=== PATIENT | female | born 1955 | race Caucasian/White ===

== ENCOUNTER 2019-09-04 13:12 | Emergency (ER) | payer MEDICARE, OTHER ==
[~2019-09-04] VITALS: Ht 161 cm; Wt 57.9 kg
[2019-09-04] MEDS ORDERED: FAMOTIDINE 20MG/2ML IV (PEPCID) IVP ONE (14:00)
[2019-09-04] MEDS ORDERED: ONDANSETRON 4 MG/2 ML (SDV) Z0FRAN IVP ONE (14:00)
[2019-09-04] MEDS ORDERED: NS IV 1000 ML 1,000 ML IV SCH ×2 (14:00→15:00)
[2019-09-04 14:08] LABS: BASOPHILS % (AUTO) 1 % (0-10); EOSINOPHILS % (AUTO) 1 % (0-10); HEMATOCRIT 38 % (35-52); HEMOGLOBIN 12.3 G/DL (11.5-16.0); LYMPHOCYTES % (AUTO) 24 % (12-44); MEAN CORPUSCULAR HEMOGLOBIN 35 PG (25-34); MEAN CORPUSCULAR HGB CONC 33 G/DL (32-36); MEAN CORPUSCULAR VOLUME 108 FL (80-99); MEAN PLATELET VOLUME 10.2 FL (7.4-10.4); MONOCYTES % (AUTO) 12 % (0-12); NEUTROPHILS # (AUTO) 4.3 X 10^3 (1.8-7.8); NEUTROPHILS % (AUTO) 62 % (42-75); PLATELET COUNT 312 10^3/uL (130-400); RED CELL DISTRIBUTION WIDTH 13.4 % (10.0-14.5)
[2019-09-04 14:09] LABS: EOSINOPHILS # (AUTO) 0.1 10^3/uL (0.0-0.3); LYMPHOCYTES # (AUTO) 1.7 X 10^3 (1.0-4.0); MONOCYTES # (AUTO) 0.8 X 10^3 (0.0-1.0)
[2019-09-04 14:15] VITALS: BP 137/65
[2019-09-04 14:43] LABS: ALANINE AMINOTRANSFERASE 26 U/L (0-55); ALBUMIN 4.7 GM/DL (3.2-4.5); ALKALINE PHOSPHATASE 99 U/L (40-136); BILIRUBIN,TOTAL 0.4 MG/DL (0.1-1.0); BUN/CREATININE RATIO 7; CALCIUM 9.5 MG/DL (8.5-10.1); CARBON DIOXIDE 20 MMOL/L (21-32); CHLORIDE 99 MMOL/L (98-107); CREATININE SERUM 3.56 MG/DL (0.60-1.30); GFR ESTIMATED 13; GLUCOSE 132 MG/DL (70-105); POTASSIUM 3.7 MMOL/L (3.6-5.0); SODIUM 135 MMOL/L (135-145); TOTAL PROTEIN 7.9 GM/DL (6.4-8.2)
[2019-09-04 15:15] VITALS: BP 145/85
--- NOTE | 2019-09-04 15:17 | ED Abdominal Pain ---
General Chief Complaint: Abdominal/GI Problems Stated Complaint: DIARRHEA Nursing Triage Note: Patient reports she has a history of Crohn's disease, has been taking azathioprine and has been well controlled for some time. She states she had to stop taking the azathioprine d/t liver function testing, restarted azathioprine 2 weeks ago and has had uncontrolled diarrhea since. She states she has seen and called her GI specialist at , Dr. Whittaker, multiple times and received a prescription for lomotil and has been taking immodium as well. She reports she is out of the lomotil and the pharmacy will not refill the medication for another two weeks. She reports some nausea/vomiting as well, states she has not eaten since Monday, but has been able to keep fluids down. Sepsis Screen: No Definite Risk History of Present Illness Date Seen by Provider: Sep 04, 2019 Time Seen by Provider: 13:00 Initial Comments Patient is a 64-year-old female with history of Crohn's currently on azathioprine who presents with persistent watery diarrhea after eating for the past 3 weeks. Patient states symptoms coincide with recent change in her Crohn's medications. Patient denies dizziness lightheadedness, chest pain palpitations, fevers, chills, sweats, leg pain and cramping. No abdominal pain or bloody stools. She states that she is being treated with Lomotil by her GI physician but she ran out this morning. She is requesting a refill of her medications. No other acute symptoms or complaints. Timing/Duration: Other Severity/Quality: Moderate Radiation: No Radiation Activities at Onset: None Associated Symptoms: Denies Symptoms Allergies and Home Medications Allergies Coded Allergies: No Known Drug Allergies (Unverified , 09/04/19) Patient Home Medication List Home Medication List Reviewed: Yes Review of Systems Review of Systems Constitutional: see HPI EENTM: See HPI Respiratory: See HPI Cardiovascular: See HPI Gastrointestinal: See HPI Genitourinary: See HPI Musculoskeletal: see HPI Skin: see HPI Psychiatric/Neurological: See HPI Endocrine: See HPI Hematologic/Lymphatic: See HPI Past Tmuddua-Lghkwr-Uqseiz Hx Patient Social History Alcohol Use: Regular Use Number of Drinks Today: 0 Alcohol Beverage of Choice: Beer Recreational Drug Use: No Smoking Status: Never a Smoker 2nd Hand Smoke Exposure: No Recent Foreign Travel: No Contact w/Someone Who Travel: No Recent Infectious Disease Expo: No Recent Hopitalizations: No Physical Abuse: No Sexual Abuse: No Mistreated: No Fear: No Seasonal Allergies Seasonal Allergies: No Past Medical History Surgeries: No Respiratory: No Cardiac: No Neurological: No Genitourinary: No Gastrointestinal: Yes Crohns Disease Musculoskeletal: No Endocrine: No HEENT: No Cancer: No Psychosocial: No Integumentary: No Physical Exam Vital Signs Vital Signs - First Documented 09/04/19 13:15 Temp 36.4 Pulse 56 Resp 18 B/P (MAP) 158/71 (100) Pulse Ox 100 O2 Delivery Room Air Capillary Refill : Less Than 3 Seconds Height/Weight/BMI Height: '" Weight: lbs. oz. kg; 22.00 BMI Method: General Appearance: no apparent distress HEENT: PERRL/EOMI, normal ENT inspection, pharynx normal Neck: non-tender, full range of motion, supple Respiratory: chest non-tender, lungs clear Cardiovascular: normal peripheral pulses, regular rate, rhythm Gastrointestinal: non tender, soft Extremities: normal range of motion, non-tender Back: normal inspection, no CVA tenderness Skin: normal color, warm/dry Focused Exam Sepsis Stage: Ruled Out Progress/Results/Core Measures Results/Orders Lab Results Laboratory Tests Test 09/04/19 13:50 Range/Units White Blood Count 7.0 4.3-11.0 10^3/uL Red Blood Count 3.48 L 4.35-5.85 10^6/uL Hemoglobin 12.3 11.5-16.0 G/DL Hematocrit 38 35-52 % Mean Corpuscular Volume 108 H 80-99 FL Mean Corpuscular Hemoglobin 35 H 25-34 PG Mean Corpuscular Hemoglobin Concent 33 32-36 G/DL Red Cell Distribution Width 13.4 10.0-14.5 % Platelet Count 312 130-400 10^3/uL Mean Platelet Volume 10.2 7.4-10.4 FL Neutrophils (%) (Auto) 62 42-75 % Lymphocytes (%) (Auto) 24 12-44 % Monocytes (%) (Auto) 12 0-12 % Eosinophils (%) (Auto) 1 0-10 % Basophils (%) (Auto) 1 0-10 % Neutrophils # (Auto) 4.3 1.8-7.8 X 10^3 Lymphocytes # (Auto) 1.7 1.0-4.0 X 10^3 Monocytes # (Auto) 0.8 0.0-1.0 X 10^3 Eosinophils # (Auto) 0.1 0.0-0.3 10^3/uL Basophils # (Auto) 0.0 0.0-0.1 10^3/uL Sodium Level 135 135-145 MMOL/L Potassium Level 3.7 3.6-5.0 MMOL/L Chloride Level 99 98-107 MMOL/L Carbon Dioxide Level 20 L 21-32 MMOL/L Anion Gap 16 H 5-14 MMOL/L Blood Urea Nitrogen 26 H 7-18 MG/DL Creatinine 3.56 H 0.60-1.30 MG/DL Estimat Glomerular Filtration Rate 13 BUN/Creatinine Ratio 7 Glucose Level 132 H 70-105 MG/DL Calcium Level 9.5 8.5-10.1 MG/DL Corrected Calcium 8.5-10.1 MG/DL Total Bilirubin 0.4 0.1-1.0 MG/DL Aspartate Amino Transf (AST/SGOT) 36 H 5-34 U/L Alanine Aminotransferase (ALT/SGPT) 26 0-55 U/L Alkaline Phosphatase 99 40-136 U/L Total Protein 7.9 6.4-8.2 GM/DL Albumin 4.7 H 3.2-4.5 GM/DL My Orders Orders - YULIET JOHNSON DO Cbc With Automated Diff (09/04/19 13:34) Comprehensive Metabolic Panel (09/04/19 13:34) Urinalysis Dipstick Only (09/04/19 13:34) Ns Iv 1000 Ml (Sodium Chloride 0.9%) (09/04/19 14:00) Ondansetron Injection (Zofran Injectio (09/04/19 14:00) Famotidine Injection (Pepcid Injection) (09/04/19 14:00) Ns Iv 1000 Ml (Sodium Chloride 0.9%) (09/04/19 15:00) Vital Signs/I&O 09/04/19 13:15 Temp 36.4 Pulse 56 Resp 18 B/P (MAP) 158/71 (100) Pulse Ox 100 O2 Delivery Room Air Blood Pressure Mean: 100 Departure Communication (Admissions) IVF given. Will transfer to [facility]. Patient requests transfer by pr ivate vehicle. Impression Primary Impression: Dehydration Additional Impression: Acute kidney failure Disposition: SHT-TRM HOSP Condition: Stable YULIET JOHNSON DO Sep 04, 2019 15:17
[2019-09-04 16:16] LABS: BILIRUBIN,URINE NEGATIVE (NEGATIVE); CLARITY,URINE CLOUDY; COLOR,URINE YELLOW; GLUCOSE, URINE (UA) NEGATIVE (NEGATIVE); KETONES,URINE NEGATIVE (NEGATIVE); NITRITE,URINE NEGATIVE (NEGATIVE); PROTEIN,URINE NEGATIVE (NEGATIVE); UROBILINOGEN,URINE 0.2 MG/DL (NORMAL)
[2019-09-04 16:17] LABS: LEUKOCYTE ESTERASE ,URINE 2+ (NEGATIVE)
[2019-09-04 17:30] VITALS: BP 148/77
--- NOTE | 2019-09-04 17:36 | NUR ---
1710: Room assignment received from , patient and wishing to go by private vehicle. Dr. Harrington aware and ok with patient going POV if B/P are stable, B/P 148/77, ok to leave IV in per Dr. Harrington. transfer center notified, they are ok with patient coming by private vehicle. Patient and given instructions to go straight to main hospital entrance, then to the admissions office. Patient and informed of and verbalize understanding of risks of going by private vehicle.
== END 2019-09-04 17:30 | disposition short-term general hospital (02) ==
LOC: ER FS 13:14
DX: N17.9 Acute kidney failure, unspecified (principal); E86.0 Dehydration; Z87.19 Personal history of other diseases of the digestive system
CPT/HCPCS: 36415; 80053; 81002; 85025; 96360; 96361

== ENCOUNTER 2021-04-07 17:29 | Emergency (ER) | payer MEDICARE, OTHER ==
[~2021-04-07] VITALS: Ht 162 cm; Wt 62.0 kg
[~2021-04-07 17:29] MED LIST: ONDANSETRON 4 MG/2 ML (SDV) Z0FRAN ONE
[2021-04-07] MEDS ORDERED: ONDANSETRON 4 MG (ZOFRAN) ORAL DISSOLVE TAB PO STA (17:31)
[2021-04-07] MEDS ORDERED: morphine INJ 10 MG/ML 1ML (SYR OR VIAL) IVP STA (17:31)
[2021-04-07] MEDS ORDERED: ONDANSETRON 4 MG/2 ML (SDV) Z0FRAN IVP ONE (17:45)
--- NOTE | 2021-04-07 18:03 | ED Lower Extremity ---
General Chief Complaint: Lower Extremity Stated Complaint: FELL,LT KNEE PAIN Nursing Triage Note: PT FELL FROM A 2 FOOT STEP STOOL ONTO HER LEFT KNEE. NO LOC. Nursing Sepsis Screen: No Definite Risk Source: patient Exam Limitations: no limitations History of Present Illness Date Seen by Provider: April 07, 2021 Time Seen by Provider: 17:50 Initial Comments Patient is a 65-year-old female presents with left thigh/knee pain after falling off a 2 foot step ladder and landing on her left knee after losing balance. She denies hitting her head or loss of consciousness, headache, neck pain. She is not on anticoagulation therapy. She does report left-sided rib pain along with left knee pain. She is not short of breath. Patient arrives by private vehicle she was able to partial weight-bear. Denies chest pain, shortness of breath, palpitations, abdominal pain. No midline, no back pain. No weakness or loss of sensation left leg. No other acute symptoms or complaints. Onset: just prior to arrival Severity: moderate Pain/Injury Location: left knee Method of Injury: direct blow Modifying Factors: Improves With Other Allergies and Home Medications Allergies Coded Allergies: No Known Drug Allergies (Unverified , 09/04/19) Patient Home Medication List Home Medication List Reviewed: Yes Review of Systems Constitutional: see HPI EENTM: see HPI Respiratory: see HPI Cardiovascular: see HPI Gastrointestinal: see HPI Genitourinary: see HPI Musculoskeletal: see HPI Skin: see HPI Psychiatric/Neurological: See HPI All Other Systems Reviewed Negative Unless Noted: Yes Past Hdqvvxg-Ljecqp-Reqjfz Hx Past Med/Social Hx: Reviewed Nursing Past Med/Soc Hx Patient Social History Alcohol Use: Occasionally Uses Number of Drinks Today: AA Alcohol Beverage of Choice: Beer Smoking Status: Never a Smoker 2nd Hand Smoke Exposure: No Recent Infectious Disease Expo: No Recent Hopitalizations: No Seasonal Allergies Seasonal Allergies: No Past Medical History Surgeries: No Respiratory: No Cardiac: No Neurological: No Genitourinary: No Gastrointestinal: Yes Crohns Disease Musculoskeletal: No Endocrine: No HEENT: No Cancer: No Psychosocial: No Integumentary: No Physical Exam Vital Signs Vital Signs - First Documented 04/07/21 17:30 Temp 36.0 Pulse 64 Resp 20 B/P (MAP) 136/116 (123) Pulse Ox 98 O2 Delivery Room Air Capillary Refill : Less Than 3 Seconds Height, Weight, BMI Height: '" Weight: lbs. oz. kg; 23.00 BMI Method: General Appearance: moderate distress (Secondary to pain) HEENT: PERRL/EOMI, TMs normal Neck: non-tender, full range of motion Respiratory: chest non-tender, lungs clear Gastrointestinal: non tender, soft Hips: bilateral hip non-tender Legs: left leg joint effusion, left leg limited range of motion, left leg nodules, left leg pain, left leg soft tissue tenderness, left leg swelling Knees: left knee deformity, left knee joint effusion, left knee pain, left knee soft tissue tenderness, left knee swelling Neurologic/Tendon: normal sensation, normal motor functions Neurologic/Psychiatric: no motor/sensory deficits, alert, oriented x 3 Progress/Results/Core Measures Results/Orders My Orders Orders - YULIET JOHNSON DO Chest 1 View Ap/Pa Only (04/07/21 17:31) Femur 2 View Left (04/07/21 17:31) Morphine Injection (Morphine Injection (04/07/21 17:31) Ondansetron Oral Dissolve Tab (Zofran (04/07/21 17:31) Knee 3 View Left (04/07/21 17:31) Ondansetron Injection (Zofran Injectio (04/07/21 17:27) Ondansetron Injection (Zofran Injectio (04/07/21 17:45) Ct Extremity Lower Left Wo (04/07/21 17:58) Knee Immobilizer (04/07/21 18:01) Medications Given in ED Current Medications Medications Dose Ordered Sig/Rita Route Start Time Stop Time Status Last Admin Dose Admin Ondansetron HCl 4 mg ONCE ONCE IVP 04/07/21 17:45 04/07/21 17:46 DC 04/07/21 17:40 4 MG Vital Signs/I&O 04/07/21 17:30 Temp 36.0 Pulse 64 Resp 20 B/P (MAP) 136/116 (123) Pulse Ox 98 O2 Delivery Room Air Blood Pressure Mean: 123 Departure Communication (Admissions) CT left lower extremity: Comminuted depressed left tibial plateau fracture Chest x-ray/pelvis/left hip/femur/knee: Comminuted depressed left tibial plateau fracture Isolated left knee injury with tibial plateau fracture. Left leg is neurologic vascularly intact no head or neck injury. Pain addressed, patient put in splint. Patient accepted to [facility] per Dr. Jason Mazariegos at 1915. Impression Primary Impression: Tibial plateau fracture, left Disposition: XFER SHT-TRM HOSP Condition: Stable Transfer Transfer Reason: Patient preference Departure-Patient Inst. Referrals: JOVI CHAVEZ MD (PCP/Family) Primary Care Physician YULIET JOHNSON DO April 07, 2021 18:03
--- NOTE | 2021-04-07 18:23 | Diagnostic Imaging Report ---
EXAMINATION: Chest 1 view HISTORY: trauma COMPARISON: None available. FINDINGS: The lungs are clear without edema or pneumonia. No pleural effusion or pneumothorax. Heart size is normal. IMPRESSION: 1. Clear lungs. Dictated by: Dictated on workstation # [email or web address]
--- NOTE | 2021-04-07 18:25 | Diagnostic Imaging Report ---
EXAMINATION: Left knee 3 views HISTORY: Fall COMPARISON: None available. FINDINGS: There is a left tibial plateau fracture with at least 5 mm of incongruence and likely 5 mm depression extending into the lateral tibial plateau.. There is a lipohemarthrosis. IMPRESSION: 1. Depressed and incongruent left tibial plateau fracture extending into the lateral tibial plateau. Dictated by: Dictated on workstation # [email or web address]
--- NOTE | 2021-04-07 18:27 | Diagnostic Imaging Report ---
EXAMINATION: Left femur 2 or more views HISTORY: trauma COMPARISON: None available. FINDINGS: Left femur alignment is normal. No fracture seen in the left femur. There is partially imaged left lateral tibial plateau fracture. IMPRESSION: 1. No fracture seen in the left femur. 2. Partially imaged left lateral tibial plateau fracture. Dictated by: Dictated on workstation # [email or web address]
--- NOTE | 2021-04-07 18:54 | Diagnostic Imaging Report ---
PROCEDURE: CT left lower extremity without contrast. TECHNIQUE: Multiple contiguous axial images were obtained through the left lower extremity without the use of intravenous contrast. Sagittal and coronal reformations were then performed. Auto Exposure Controls were utilized during the CT exam to meet ALARA standards for radiation dose reduction. INDICATION: Trauma COMPARISON: Plain films from the same day. FINDINGS: There is a comminuted lateral tibial plateau fracture extending into the intercondylar region, the largest area of articular incongruence is 12 mm. There is a posteriorly displaced fracture fragment. Fracture fragments are depressed up to 6 mm. A fracture line extends into the medial tibial plateau. One of the fracture fragments is rotated 90 degrees with the articular surface oriented perpendicular to the tibial plateau. There is a lipohemarthrosis. No other fracture is seen. There is hemorrhage posterior to the left knee and soft tissues. Anterior cruciate ligament is intact. Posterior cruciate ligament appears to be intact as well as partially obscured by the adjacent soft tissues. IMPRESSION: 1. Comminuted tibial plateau fracture predominantly lateral but also extending into the intercondylar region into the medial tibial plateau with extensive areas of depression and incongruence. Dictated by: Dictated on workstation # [email or web address]
[2021-04-07 20:00] VITALS: BP 168/65
== END 2021-04-07 20:00 | disposition short-term general hospital (02) ==
LOC: EDUNIT# 17:29 → ER FS 17:30
DX: S82.142A Displaced bicondylar fracture of left tibia, initial encounter for closed fracture (principal); W11.XXXA Fall on and from ladder, initial encounter
CPT/HCPCS: 71045; 73552; 73562; 73700; 99285; L1830

== ENCOUNTER 2023-04-13 11:40 | Emergency (ER) | payer MEDICARE, OTHER ==
[~2023-04-13] VITALS: Ht 162 cm; Wt 58.0 kg
[2023-04-13 12:19] VITALS: BP 204/54
--- NOTE | 2023-04-13 12:29 | ED General ---
General Chief Complaint: General Problems/Pain Stated Complaint: ELEV BP Nursing Triage Note: Patient has presented to ER with her blood pressure elevated. Patient reports that she was a the clinic for a blood pressure check and her blood pressure was 200/101. They advised her to come to the ER for evaluation. Patient denies any complaint. Source of Information: Patient Exam Limitations: No Limitations History of Present Illness Date Seen by Provider: April 13, 2023 Time Seen by Provider: 12:10 Initial Comments This 67-year-old woman presents to the emergency room with complaints of hypertension exacerbation. She has known hypertension for which she is treated with losartan 100 mg daily and metoprolol tartrate 25 mg daily. She was at the clinic today at an appointment with her and her blood pressure was checked. She reports blood pressures in the range of 210/105 and 200/104. Although she is not feeling ill in any way, she was directed to the emergency room for further evaluation. Other chronic health concerns include Crohn's disease. Patient is also a daily consumer of 1-8 beers. Wendy Beverly is her primary care provider. Patient reports she historically has labile blood pressures and systolic blood pressure is usually in the 140-170 range. She did take her medications this morning. She denies consuming anything that may exacerbate her blood pressure such as excessive salt, stimulants, etc. Allergies and Home Medications Allergies Coded Allergies: No Known Drug Allergies (Unverified , 09/04/19) Patient Home Medication List Home Medication List Reviewed: Yes Amlodipine Besylate (Amlodipine Besylate) 5 Mg Tablet, 5 MG PO DAILY Prescribed by: ANGELICA DURAN on 04/13/23 1244 Review of Systems Review of Systems Constitutional: no symptoms reported EENTM: no symptoms reported Respiratory: no symptoms reported Cardiovascular: see HPI Gastrointestinal: no symptoms reported Genitourinary: no symptoms reported Musculoskeletal: no symptoms reported Skin: no symptoms reported Psychiatric/Neurological: No Symptoms Reported Hematologic/Lymphatic: No Symptoms Reported Immunological/Allergic: no symptoms reported Past Fycpyty-Cgtdpp-Weukkh Hx Patient Social History Tobacco Use?: No Use of E-Cig and/or Vaping dev: No Substance use?: Yes Substance type: Marijuana Substance frequency: Daily Alcohol Use?: Yes Alcohol type: Beer Alcohol Frequency: Daily (1-8 beers each evening) Seasonal Allergies Seasonal Allergies: No Past Medical History Surgeries: Yes Orthopedic (Left knee) Respiratory: No Cardiac: Yes Hypertension Neurological: No Genitourinary: No Gastrointestinal: Yes Crohns Disease Musculoskeletal: No Endocrine: No HEENT: No Cancer: No Psychosocial: Yes (Daily alcohol use) Integumentary: No Physical Exam Vital Signs Vital Signs - First Documented 04/13/23 12:19 Temp 36.6 Pulse 62 Resp 16 B/P (MAP) 204/54 (104) Pulse Ox 97 O2 Delivery Room Air Capillary Refill : Height, Weight, BMI Height: '" Weight: lbs. oz. kg; 22.00 BMI Method: General Appearance: No Apparent Distress, WD/WN HEENT: PERRL/EOMI, Normal ENT Inspection Neck: Normal Inspection; No JVD Respiratory: Lungs Clear, Normal Breath Sounds, No Accessory Muscle Use Cardiovascular: Regular Rate, Rhythm, No Edema, No Murmur Extremity: Normal Inspection, No Pedal Edema Neurologic/Psychiatric: Alert, Oriented x3, No Motor/Sensory Deficits, Normal Mood/Affect Progress/Results/Core Measures Suspected Sepsis SIRS Temperature: Pulse: 62 Respiratory Rate: 16 Blood Pressure 204 /54 Mean: 104 Results/Orders My Orders Orders - ANGELICA THAO MD Amlodipine Tablet (Norvasc Tablet) (04/13/23 12:30) Medications Given in ED Current Medications Medications Dose Ordered Sig/Rita Route Start Time Stop Time Status Last Admin Dose Admin Amlodipine Besylate 5 mg ONCE ONCE PO 04/13/23 12:30 04/13/23 12:31 DC 04/13/23 12:34 5 MG Vital Signs/I&O 04/13/23 12:19 Temp 36.6 Pulse 62 Resp 16 B/P (MAP) 204/54 (104) Pulse Ox 97 O2 Delivery Room Air Capillary Refill : Blood Pressure Mean: 104 Progress Note : Progress Note RemainPatient remained asymptomatic. Her blood pressures and in the 170s to 200s systolic. She was treated with Norvasc 5 mg. I suspect some of her labile blood pressure issue is related to alcohol consumption every evening. She is on the maximum dose of losartan. I considered maximizing her metoprolol dosing but her heart rate was only in the 60s. Norvasc was used as an alternative. Patient has routine lab monitoring for her Crohn's disease. More labs were not obtained today. See discharge instructions for further discussion. Departure Impression Primary Impression: Hypertension Qualified Codes: I10 - Essential (primary) hypertension Disposition: 01 HOME, SELF-CARE Condition: Stable Departure-Patient Inst. Decision time for Depature: 12:40 Referrals: WENDY BEVERLY APRN (PCP) Primary Care Physician [facility] (Family) Primary Care Physician Patient Instructions: High Blood Pressure ED Add. Discharge Instructions: Continue taking your present medications. Add amlodipine (Norvasc) 5 mg daily as prescribed. Metoprolol tartrate is usually taken twice daily. Discussed the frequency of your dosing of metoprolol tartrate with your primary care provider when you follow-up. Follow-up with your primary care provider in 1 to 2 weeks to have your blood pressure evaluated again. Continue checking your blood pressure once or twice a day. Keep a log of these blood pressures with date and time. Also your blood pressure in the evenings an hour or more after you have consumed some alcohol. If your blood pressure is significantly better, then you are likely having some rebound hypertension earlier in the day after the effect of the evening alcohol has worn off. Taper down on your alcohol consumption so that you are drinking only 1 or 2 beers maximum per day. Avoid abruptly stopping alcohol as this may cause a dangerous withdraw. Return to the emergency room if you are having persistent high blood pressures of 180 or greater on the top number despite starting Norvasc. Avoid consuming other substances that may exacerbate high blood pressure such as excessive salt, excessive caffeine, other stimulants such as diet pills or energy drinks, decongestants, medications for ADHD, etc. Return to the emergency room if you have worsening symptoms or if blood pressure is not improving despite following these instructions. All discharge instructions reviewed with patient and/or family. Voiced understanding. Scripts Amlodipine Besylate (Amlodipine Besylate) 5 Mg Tablet 5 MG PO DAILY, #30 TAB Prov: ANGELICA THAO MD 04/13/23 Copy Copies To 1: [facility]/ANGELICA ROMERO MD April 13, 2023 12:28
[2023-04-13] MEDS ORDERED: amLODIPine 5 MG (NORVASC) TAB PO ONE (12:30)
[2023-04-13] MEDS ORDERED: AMLO-250 PO (12:44)
== END 2023-04-13 12:52 | disposition home or self-care (01) ==
LOC: EDUNIT# 11:40 → ER FS 11:42
DX: I10 Essential (primary) hypertension (principal); Z79.899 Other long term (current) drug therapy; Z28.310 Unvaccinated for COVID-19
CPT/HCPCS: 99283

== ENCOUNTER 2023-08-10 17:29 | Inpatient (IN) | payer MEDICARE, OTHER ==
[~2023-08-10] VITALS: Ht 162 cm; Wt 63.0 kg
[~2023-08-10 17:29] MED LIST changes: +AMLO-250 PO; -ONDANSETRON 4 MG/2 ML (SDV) Z0FRAN ONE
[2023-08-10] MEDS ORDERED: DEXTROSE 50% 50 ML (IMS) SYR ONE (17:42)
[2023-08-10] MEDS ORDERED: NS IV 1000 ML 1,000 ML IV SCH ×2 (17:45→18:45)
[2023-08-10 17:50] LABS: BASOPHILS # (AUTO) 0.1 10^3/uL (0.0-0.1); BASOPHILS % (AUTO) 1 % (0-10); EOSINOPHILS % (AUTO) 0 % (0-10); HEMATOCRIT 33 % (35-52); HEMOGLOBIN 11.1 g/dL (11.5-16.0); LYMPHOCYTES # (AUTO) 0.4 10^3/uL (1.0-4.0); LYMPHOCYTES % (AUTO) 3 % (12-44); MEAN CORPUSCULAR HEMOGLOBIN 37 pg (25-34); MEAN CORPUSCULAR HGB CONC 34 g/dL (32-36); MEAN CORPUSCULAR VOLUME 109 fL (80-99); MEAN PLATELET VOLUME 12.4 fL (9.0-12.2); MONOCYTES # (AUTO) 0.2 10^3/uL (0.0-1.0); MONOCYTES % (AUTO) 1 % (0-12); NEUTROPHILS # (AUTO) 15.5 10^3/uL (1.8-7.8); NEUTROPHILS % (AUTO) 93 % (42-75); PLATELET COUNT 144 10^3/uL (130-400); WHITE BLOOD COUNT 16.7 10^3/uL (4.3-11.0)
[2023-08-10] MEDS ORDERED: DEXTROSE 50% 50 ML (IMS) SYR IV ONE (18:00)
[2023-08-10 18:09] LABS: POTASSIUM 4.5 MMOL/L (3.6-5.0)
[2023-08-10 18:10] LABS: ALBUMIN 2.7 GM/DL (3.2-4.5); BILIRUBIN,TOTAL 0.9 MG/DL (0.1-1.0); CALCIUM 9.1 MG/DL (8.5-10.1); CREATININE SERUM 3.17 MG/DL (0.60-1.30); MAGNESIUM 1.4 MG/DL (1.6-2.4); TOTAL PROTEIN 6.9 GM/DL (6.4-8.2)
[2023-08-10 18:17] LABS: NEUTROPHILS % (MANUAL) 92 %
[2023-08-10 18:18] LABS: ANISOCYTOSIS SLIGHT; HYPOCHROMASIA SLIGHT; LYMPHOCYTES % (MANUAL) 6 %; MONOCYTES % (MANUAL) 2 %; NUCLEATED RED BLOOD CELLS 1; PLATELET ESTIMATE SL DECREASED
[2023-08-10 18:19] LABS: TOXIC GRANULATION/VACUOLAZATIO 1+
[2023-08-10] MEDS ORDERED: MAGNESIUM 1 GM/100 ML IVPB 100 ML IV ONE (18:45)
--- NOTE | 2023-08-10 19:03 | ED General ---
General Chief Complaint: General Problems/Pain Stated Complaint: LT FLANK PAIN Nursing Triage Note: PT C/O BEING WEAK AND JUST NOT FEELING WELL THE PAST WEEK. MONDAY SHE NOTICED HER URINE PUTPUT WAS DECREASING. Source of Information: Patient, Family, Old Records, Other (Clinic report) Exam Limitations: No Limitations History of Present Illness Date Seen by Provider: Aug 10, 2023 Time Seen by Provider: 17:35 Initial Comments This 68-year-old woman presents to the emergency room by private vehicle as a referral from the [facility] clinic in [place] for reasons of weakness, fatigue, dyspnea, oligoanuria, and hypoglycemia. Labs were obtained at the [facility] clinic and she was found to have a creatinine of 3.2. Blood sugar was also 50. Patient did not have any interventions prior to arrival to the ER. She has history of Crohn's disease and anemia. She denies any recent exacerbation of Crohn's disease such as diarrhea, hematochezia, or abdominal pain. She has had some generalized back aching bilaterally that is ill-defined. Her primary care provider is Wendy Beverly at [facility]. She also sees a specialist at [facility] for Crohn's disease. She is afebrile and has normal vital signs on triage assessment. F ingerstick blood sugar was 28. Immediate intervention with an amp of D50 was provided. Patient reported her dyspnea resolved after correction of hypoglycemia. Patient typically drinks 1-5 beers daily and denies any alcohol consumption today. Allergies and Home Medications Allergies Coded Allergies: No Known Drug Allergies (Unverified , 09/04/19) Patient Home Medication List Home Medication List Reviewed: Yes Amlodipine Besylate (Amlodipine Besylate) 5 Mg Tablet, 5 MG PO DAILY Prescribed by: ANGELICA DURAN on 04/13/23 1244 Review of Systems Review of Systems Constitutional: see HPI; No fever EENTM: other (Dry mouth) Respiratory: see HPI Cardiovascular: no symptoms reported Gastrointestinal: no symptoms reported Genitourinary: see HPI : No Musculoskeletal: see HPI Skin: no symptoms reported Psychiatric/Neurological: No Symptoms Reported Hematologic/Lymphatic: No Symptoms Reported Immunological/Allergic: no symptoms reported Past Ifoeogc-Jchdjq-Henesy Hx Patient Social History Tobacco Use?: Yes Smoking Status: Former Smoker Use of E-Cig and/or Vaping dev: No Substance use?: No Alcohol Use?: Yes Alcohol type: Beer Alcohol Frequency: Daily Pt feels they are or have been: No Immunizations Up To Date Influenza Vaccine Up-to-Date: No; Not Current Seasonal Allergies Seasonal Allergies: No Past Medical History Surgery/Hospitalization HX: [facility] Surgeries: Yes Orthopedic (Knee) Respiratory: No Cardiac: Yes Hypertension Neurological: No : No Genitourinary: Yes Renal Failure Gastrointestinal: Yes Crohns Disease Musculoskeletal: No Endocrine: No HEENT: No Cancer: No Psychosocial: Yes (Daily alcohol use) Integumentary: No Blood Disorders: Yes (Anemia) Physical Exam Vital Signs Vital Signs - First Documented 08/10/23 17:48 Pulse 80 Resp 16 B/P (MAP) 107/83 (91) Pulse Ox 97 O2 Delivery Room Air Capillary Refill : Less Than 3 Seconds Height, Weight, BMI Height: '" Weight: lbs. oz. kg; 22.00 BMI Method: General Appearance: WD/WN, Mild Distress HEENT: PERRL/EOMI, Normal ENT Inspection, Other (Very dry oropharynx) Neck: Normal Inspection; No JVD Respiratory: Lungs Clear, Normal Breath Sounds, No Accessory Muscle Use, No Respiratory Distress Cardiovascular: Regular Rate, Rhythm, No Edema, No Murmur Gastrointestinal: Normal Bowel Sounds, Non Tender, Soft; No Distended Extremity: Normal Inspection, No Pedal Edema Neurologic/Psychiatric: Alert, Oriented x3, No Motor/Sensory Deficits, Normal Mood/Affect Skin: Normal Color, Warm/Dry Focused Exam Lactate Level 08/10/23 20:45: Lactic Acid Level 4.37*H Lactic Acid Level Laboratory Tests Test 08/10/23 20:45 Lactic Acid Level 4.37 MMOL/L (0.50-2.00) *H Progress/Results/Core Measures Suspected Sepsis SIRS Temperature: Pulse: 80 Respiratory Rate: 16 Laboratory Tests 08/10/23 17:38: White Blood Count 16.7H Blood Pressure 107 /83 Mean: 91 08/10/23 20:45: Lactic Acid Level 4.37*H Laboratory Tests 08/10/23 17:38: Creatinine 3.17H, INR Comment 1.0, Platelet Count 144, Total Bilirubin 0.9 Results/Orders Lab Results Laboratory Tests Test 08/10/23 17:38 08/10/23 17:40 08/10/23 17:43 08/10/23 18:34 Range/Units White Blood Count 16.7 H 4.3-11.0 10^3/uL Red Blood Count 3.00 L 3.80-5.11 10^6/uL Hemoglobin 11.1 L 11.5-16.0 g/dL Hematocrit 33 L 35-52 % Mean Corpuscular Volume 109 H 80-99 fL Mean Corpuscular Hemoglobin 37 H 25-34 pg Mean Corpuscular Hemoglobin Concent 34 32-36 g/dL Red Cell Distribution Width 16.7 H 10.0-14.5 % Platelet Count 144 130-400 10^3/uL Mean Platelet Volume 12.4 H 9.0-12.2 fL Immature Granulocyte % (Auto) 3 % Neutrophils (%) (Auto) 93 H 42-75 % Lymphocytes (%) (Auto) 3 L 12-44 % Monocytes (%) (Auto) 1 0-12 % Eosinophils (%) (Auto) 0 0-10 % Basophils (%) (Auto) 1 0-10 % Neutrophils # (Auto) 15.5 H 1.8-7.8 10^3/uL Lymphocytes # (Auto) 0.4 L 1.0-4.0 10^3/uL Monocytes # (Auto) 0.2 0.0-1.0 10^3/uL Eosinophils # (Auto) 0.0 0.0-0.3 10^3/uL Basophils # (Auto) 0.1 0.0-0.1 10^3/uL Immature Granulocyte # (Auto) 0.4 H 0.0-0.1 10^3/uL Neutrophils % (Manual) 92 % Lymphocytes % (Manual) 6 % Monocytes % (Manual) 2 % Nucleated Red Blood Cells 1 Toxic Granulation 1+ Platelet Estimate SL DECREASED Hypochromasia SLIGHT Anisocytosis SLIGHT Macrocytosis SLIGHT Prothrombin Time 13.2 12.2-14.7 SEC INR Comment 1.0 0.8-1.4 Activated Partial Thromboplast Time 33 24-35 SEC Sodium Level 134 L 135-145 MMOL/L Potassium Level 4.5 3.6-5.0 MMOL/L Chloride Level 93 L 98-107 MMOL/L Carbon Dioxide Level 14 L 21-32 MMOL/L Anion Gap 27 H 5-14 MMOL/L Blood Urea Nitrogen 83 H 7-18 MG/DL Creatinine 3.17 H 0.60-1.30 MG/DL Estimat Glomerular Filtration Rate 15 BUN/Creatinine Ratio 26 Glucose Level 47 *L 70-105 MG/DL Calcium Level 9.1 8.5-10.1 MG/DL Corrected Calcium 10.1 8.5-10.1 MG/DL Magnesium Level 1.4 L 1.6-2.4 MG/DL Total Bilirubin 0.9 0.1-1.0 MG/DL Aspartate Amino Transf (AST/SGOT) 110 H 5-34 U/L Alanine Aminotransferase (ALT/SGPT) 48 0-55 U/L Alkaline Phosphatase 646 H 40-136 U/L C-Reactive Protein 45.20 H <0.50 MG/DL Total Protein 6.9 6.4-8.2 GM/DL Albumin 2.7 L 3.2-4.5 GM/DL Serum Alcohol < 10 <10 MG/DL Glucometer 28 *L 207 H 70-110 MG/DL Influenza Type A (RT-PCR) Not Detected Not Detecte Influenza Type B (RT-PCR) Not Detected Not Detecte SARS-CoV-2 RNA (RT-PCR) Not Detected Not Detecte Test 08/10/23 20:15 08/10/23 20:45 08/10/23 23:39 Range/Units Urine Color YELLOW Urine Clarity CLEAR Urine pH 6.0 5-9 Urine Specific [place] <=1.005 1.016-1.022 Urine Protein NEGATIVE NEGATIVE Urine Glucose (UA) NEGATIVE NEGATIVE Urine Ketones NEGATIVE NEGATIVE Urine Nitrite NEGATIVE NEGATIVE Urine Bilirubin NEGATIVE NEGATIVE Urine Urobilinogen 0.2 < = 1.0 MG/DL Urine Leukocyte Esterase TRACE H NEGATIVE Urine RBC (Auto) 3+ H NEGATIVE Urine RBC >100 H /HPF Urine WBC 10-25 H /HPF Urine Crystals NONE /LPF Urine Bacteria MODERATE H /HPF Urine Casts NONE /LPF Urine Mucus NEGATIVE /LPF Urine Culture Indicated YES Lactic Acid Level 4.37 *H 0.50-2.00 MMOL/L Lipase 276 H 8-78 U/L Glucometer 112 H 70-110 MG/DL My Orders Orders - ANGELICA THAO MD Accucheck Stat ONCE (08/10/23 17:35) Ed Iv/Invasive Line Start (08/10/23 17:35) Cbc With Automated Diff (08/10/23 17:35) Comprehensive Metabolic Panel (08/10/23 17:35) Magnesium (08/10/23 17:35) Ua Culture If Indicated (08/10/23 17:35) D50w (Emergency) Syringe (Dextrose 50% 5 (08/10/23 17:42) Ns Iv 1000 Ml (Ns Iv 1000 Ml) (08/10/23 17:45) Covid 19 Inhouse Test (08/10/23 17:44) Influenza A And B By Pcr (08/10/23 17:44) D50w (Emergency) Syringe (Dextrose 50% 5 (08/10/23 18:00) Alcohol (08/10/23 17:56) Accucheck Stat ONCE (08/10/23 18:06) Accucheck Stat ONCE (08/10/23 18:06) Accucheck Stat ONCE (08/10/23 18:06) Manual Differential (08/10/23 17:38) Ns Iv 1000 Ml (Ns Iv 1000 Ml) (08/10/23 18:45) Magnesium 1 Gm/100 Ml Ivpb (Magnesium 1 (08/10/23 18:45) Crp Fs (08/10/23 19:43) Lidocaine 2% Viscous 15 Ml (Xylocaine Vi (08/10/23 20:15) Blood Culture (08/10/23 20:22) Protime With Inr (08/10/23 20:22) Partial Thromboplastin Time (08/10/23 20:22) Vital Signs Adult Sepsis Patie Q15M (08/10/23 20:22) Remove Rings In Anticipation O (08/10/23 20:22) Lactic Acid Analyzer (08/10/23 20:22) Lipase (08/10/23 20:30) Urine Culture (08/10/23 20:15) Ceftriaxone Iv/Im (Ceftriaxone Iv/Im) (08/10/23 20:49) Ed Admission (Communication) (08/10/23 21:03) Code/Resuscitation (08/10/23 21:20) Ns Iv 1000 Ml (Ns Iv 1000 Ml) (08/10/23 21:30) Medications Given in ED Current Medications Medications Dose Ordered Sig/Rita Route Start Time Stop Time Status Last Admin Dose Admin Dextrose 50 ml ONCE ONCE IV 08/10/23 18:00 08/10/23 18:01 DC 08/10/23 17:43 50 ML Lidocaine HCl 5 ml ONCE ONCE MM 08/10/23 20:15 08/10/23 20:16 DC 08/10/23 20:15 5 ML Magnesium Sulfate/ Dextrose 100 ml @ 100 mls/hr ONCE ONCE IV 08/10/23 18:45 08/10/23 19:44 DC 08/10/23 18:58 100 MLS/HR Sodium Chloride 1,000 ml @ 200 mls/hr Q5H ONCE IV 08/10/23 21:30 08/11/23 02:29 08/10/23 21:42 200 MLS/HR Vital Signs/I&O 08/10/23 17:48 Pulse 80 Resp 16 B/P (MAP) 107/83 (91) Pulse Ox 97 O2 Delivery Room Air 08/11/23 00:00 Intake Total 2100 ml Balance 2100 ml Capillary Refill : Less Than 3 Seconds Blood Pressure Mean: 91 Point of Care Testing Finger Stick Blood Glucose: 207 Blood Glucose Action Taken: NONE Progress Note #1: Time: 20:21 Progress Note Patient is receiving her second liter of IV normal saline. She is declining treatment for pain. Repeat fingerstick blood sugar was 207 after treatment. Labs were obtained, reviewed, and interpreted in their entirety by me. CBC was remarkable for leukocytosis of 16.7, mild anemia with hemoglobin of 11.1, and normal platelets of 144. CMP was notable for low CO2 of 14, elevated BUN of 83, elevated creatinine of 3.17, hyperglycemia with glucose of 47, hypomagnesemia with magnesium of 1.4, and abnormal transaminases including AST of 110 and alk phos of 646. CRP was 45.2. Urinalysis is pending at this time and will be obtained by straight catheter specimen. Prior urinalysis was contaminated with stool. I have conversed with Dr. Lopez, physician on-call for [facility] admissions. She has reviewed baseline creatinine and notes that it is generally in the 1.0- 1.4 range according to the clinic chart. Patient refused a nasal influenza and COVID-19 swab. She consented to a pharyngeal swab which resulted as negative. Although patient does not technically meet septic criteria, blood cultures will be obtained given the significantly elevated CRP and WBC. Progress Note #2: Time: 21:16 Progress Note Urinalysis revealed pyuria with 10-25 WBC and moderate bacteria on a catheter specimen. There is also microscopic hematuria with greater than 100 RBC. This hematuria may be traumatic as it was a catheter specimen. Rocephin was administered as initial antibiotic therapy after blood cultures were obtained. I have discussed the case further with Dr. Lopez, admitting physician on hospitalist duty for [facility]. She accepts admission and is placing admission orders. I have discussed admission and transfer with patient who is agreeable. We have also discussed CODE STATUS, and she wishes to remain full code. Progress Note #3: Time: 23:55 Progress Note Patient departed with [facility] for transfer to [place] for admission at 2350. Vital signs remained stable. She had received the full 2 L of IV normal saline boluses and normal saline was running at 150 mL/h at the time of transfer. Blood sugar prior to transfer was 112. Departure Communication (Admissions) Time/Spoke to Admitting Phy: 21:00 Dr. Lopez Impression Primary Impression: Acute kidney injury Additional Impressions: Hypoglycemia Urinary tract infection Qualified Codes: N39.0 - Urinary tract infection, site not specified; R31.9 - Hematuria, unspecified Hypomagnesemia Disposition: 30 STILL A PATIENT Condition: Stable Admissions Decision to Admit Reason: Admit from ER (General) Decision to Admit/Date: Aug 10, 2023 Time/Decision to Admit Time: 21:00 Transfer Transfer Time: 23:50 Transfer Facility: [facility] Departure-Patient Inst. Referrals: WENDY BEVERLY APRN (PCP) Primary Care Physician [facility]/CARL (Family) Primary Care Physician Copy Copies To 1: [facility]/ANGELICA ROMERO MD Aug 10, 2023 19:03
[2023-08-10] MEDS ORDERED: LIDOCAINE 2% VISCOUS 15 ML UDC MM ONE (20:15)
[2023-08-10 20:32] LABS: BILIRUBIN,URINE NEGATIVE (NEGATIVE); CLARITY,URINE CLEAR; COLOR,URINE YELLOW; GLUCOSE, URINE (UA) NEGATIVE (NEGATIVE); KETONES,URINE NEGATIVE (NEGATIVE); LEUKOCYTE ESTERASE ,URINE TRACE (NEGATIVE); NITRITE,URINE NEGATIVE (NEGATIVE); PROTEIN,URINE NEGATIVE (NEGATIVE)
[2023-08-10 20:38] LABS: BACTERIA,URINE MODERATE /HPF; RBC,URINE >100 /HPF
[2023-08-10] MEDS ORDERED: cefTRIAXone IV/IM 1,000 MG in NS (IVPB) 50 ML 50 ML IV STA (20:49)
[2023-08-10 21:12] LABS: PROTHROMBIN TIME PATIENT 13.2 SEC (12.2-14.7)
[2023-08-10] MEDS ORDERED: NS IV 1000 ML 1,000 ML IV ONE (21:30)
[2023-08-11] VITALS (7 sets, daily range): BP systolic 110–142; BP diastolic 56–66
[2023-08-11] MEDS ORDERED: ONDANSETRON INJECTION 4 MG/2 ML (SDV) IVP PRN (00:45)
[2023-08-11] MEDS: ACETAMINOPHEN 325 MG TABLET PO PRN ×4 (01:37→20:04)
[2023-08-11] MEDS: LACTATED RINGERS 1,000 ML 1,000 ML IV SCH ×4 (01:37→23:26)
[2023-08-11 09:09] LABS: BASOPHILS % (AUTO) 1 % (0-10); EOSINOPHILS % (AUTO) 0 % (0-10); HEMATOCRIT 29 % (35-52); HEMOGLOBIN 9.9 g/dL (11.5-16.0); MEAN CORPUSCULAR HGB CONC 34 g/dL (32-36)
[2023-08-11 09:11] LABS: BASOPHILS # (AUTO) 0.2 10^3/uL (0.0-0.1); LYMPHOCYTES # (AUTO) 0.9 10^3/uL (1.0-4.0); LYMPHOCYTES % (AUTO) 4 % (12-44); MEAN CORPUSCULAR HEMOGLOBIN 38 pg (25-34); MEAN CORPUSCULAR VOLUME 109 fL (80-99); MEAN PLATELET VOLUME 12.7 fL (9.0-12.2); MONOCYTES # (AUTO) 0.5 10^3/uL (0.0-1.0); MONOCYTES % (AUTO) 2 % (0-12); NEUTROPHILS # (AUTO) 19.8 10^3/uL (1.8-7.8); NEUTROPHILS % (AUTO) 89 % (42-75); PLATELET COUNT 119 10^3/uL (130-400); WHITE BLOOD COUNT 22.3 10^3/uL (4.3-11.0)
[2023-08-11 09:19] LABS: ALBUMIN 2.5 GM/DL (3.2-4.5)
[2023-08-11 09:20] LABS: POTASSIUM 3.7 MMOL/L (3.6-5.0)
[2023-08-11 09:21] LABS: CALCIUM 8.2 MG/DL (8.5-10.1)
[2023-08-11 09:22] LABS: TOTAL PROTEIN 5.6 GM/DL (6.4-8.2)
[2023-08-11 09:24] LABS: BILIRUBIN,TOTAL 0.8 MG/DL (0.1-1.0)
[2023-08-11 09:25] LABS: CREATININE SERUM 2.53 MG/DL (0.60-1.30)
[2023-08-11 09:49] LABS: LYMPHOCYTES % (MANUAL) 6 %; MONOCYTES % (MANUAL) 1 %; NEUTROPHILS % (MANUAL) 93 %; NUCLEATED RED BLOOD CELLS 1; TOXIC GRANULATION/VACUOLAZATIO 1+
[2023-08-11 09:50] LABS: ANISOCYTOSIS SLIGHT; PLATELET ESTIMATE SLIGHTLY DECREASED
--- NOTE | 2023-08-11 11:55 | Diagnostic Imaging Report ---
PROCEDURE: US Hepatic (Liver). INDICATION: Elevated alkaline phosphatase. TECHNIQUE: Multiple grayscale sonographic images were obtained of the right upper quadrant of the abdomen. CORRELATION STUDY: None. FINDINGS: LIVER: There is uniform echotexture within the visualized portions of the liver. The main portal vein is patent and with normal direction of flow. Liver length is 14.4 cm. GALLBLADDER: Gallbladder is distended but demonstrates no shadowing gallstones. No abnormal gallbladder wall thickening and/or pericholecystic fluid. COMMON BILE DUCT: Nondilated at 0.5 cm. PANCREAS: Main pancreatic duct is visualized. Visualized portions of the pancreas are otherwise unremarkable. AORTA/IVC: Visualized segments, unremarkable. RIGHT KIDNEY: 9.4 x 4.4 x 4.4 cm. No hydronephrosis. OTHER: Examination is compromised given patient's current clinical state with tachypnea. Inability to breath-hold. IMPRESSION: 1. Limited but generally unremarkable-appearing right upper quadrant abdominal ultrasound. Gallbladder is noted to be somewhat distended but otherwise unremarkable. No gallstones or bile duct dilatation. Dictated by: Dictated on workstation # [id number]
[2023-08-11] MEDS ORDERED: AZAT50TA16 PO (12:13)
[2023-08-11] MEDS ORDERED: AMLO-250 PO (12:13)
[2023-08-11] MEDS ORDERED: METO-333 PO (12:13)
[2023-08-11] MEDS ORDERED: LOSA100T58 PO (12:13)
[2023-08-11] MEDS ORDERED: ONDA-106 PO (12:13)
[2023-08-11] MEDS ORDERED: OMEP20CA18 PO (12:13)
[2023-08-11] MEDS ORDERED: IBUP-2473 PO (12:13)
[2023-08-11] MEDS ORDERED: AMLO2.5T4 PO (12:13)
--- NOTE | 2023-08-11 14:27 | History & Physical ---
RIGO PERSAUD 08/11/23 1426: HPI History of Present Illness: Patient presented to ED yesterday. She said that over the last week she has had generalized back pain, weakness, fatigue, and loss of appetite. She said this continued to worsen so she went into the [place] urgent care. They discovered she had a glucose of 50 and a Cr of 3.2. She subsequently went to the ED in [place]. Patient also has a history of Crohn disease. She denies any recent exacerbation of Crohn's disease such as diarrhea, hematochezia, or abdominal pain. She also sees a specialist at [facility] for Crohn's disease. Upon review of systems with patient this morning, she denies headache, vision changes, chest pain, dysuria, constipation or diarrhea. Endorses shortness of breath, abdominal pain, and back pain. Brief ED Course: Fingerstick blood sugar was 28. Immediate intervention with an amp of D50 was provided. CBC revealed leukocytosis of 16.7 with 93% neutrophils, hgb of 11.1 with MCV of 109. CMP indicated BUN of 83, Cr of 3.17 and her baseline Cr is 1-1.4. CRP was high at 45. Lactic acid level of 4.37. Alk phos elevated at 646 and lipase of 276. UA indicated a UTI. Patient received Rocephin in ED. Blood cultures obtained. 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 Patients Allergies have been reviewed. Allergies Coded Allergies: No Known Drug Allergies (Unverified , 09/04/19) LOF-[id number]-[id number] Hx Patient Social History Marrital Status: Smoking Status: Former Smoker Former smoker/When Quit: Aug 17, 2011 2nd Hand Smoke Exposure: No Recent Hopitalizations: No Alcohol Use?: Yes (1-5 beers daily) Tobacco type used: Cigarettes Immunizations Up To Date Influenza Vaccine Up-to-Date: No; Not Current Past Medical History Crohn disease HTN CKD Review of Systems ([facility]) Constitutional: see HPI EENTM: see HPI Respiratory: see HPI Cardiovascular: see HPI Gastrointestinal: see HPI Genitourinary: see HPI : No Musculoskeletal: see HPI Skin: no symptoms reported Psychiatric/Neurological: See HPI Reviewed Test Results Reviewed Test Results Lab Laboratory Tests 08/10/23 17:38: White Blood Count 16.7H, Red Blood Count 3.00L, Hemoglobin 11.1L, Hematocrit 33L , Mean Corpuscular Volume 109H, Mean Corpuscular Hemoglobin 37H, Mean Corpuscular Hemoglobin Concent 34, Red Cell Distribution Width 16.7H, Platelet Count 144, Mean Platelet Volume 12.4H, Immature Granulocyte % (Auto) 3, Neutrophils (%) (Auto) 93H, Lymphocytes (%) (Auto) 3L, Monocytes (%) (Auto) 1, Eosinophils (%) (Auto) 0, Basophils (%) (Auto) 1, Neutrophils # (Auto) 15.5H, Lymphocytes # (Auto) 0.4L, Monocytes # (Auto) 0.2, Eosinophils # (Auto) 0.0, Basophils # (Auto) 0.1, Immature Granulocyte # (Auto) 0.4H, Neutrophils % (Manual) 92, Lymphocytes % (Manual) 6, Monocytes % (Manual) 2, Nucleated Red Blood Cells 1, Toxic Granulation 1+, Platelet Estimate SL DECREASED, Hypochromasia SLIGHT, Anisocytosis SLIGHT, Macrocytosis SLIGHT, Prothrombin Time 13.2, INR Comment 1.0, Activated Partial Thromboplast Time 33, Sodium Level 134L , Potassium Level 4.5, Chloride Level 93L, Carbon Dioxide Level 14L, Anion Gap 27H, Blood Urea Nitrogen 83H, Creatinine 3.17H, Estimat Glomerular Filtration Rate 15, BUN/Creatinine Ratio 26, Glucose Level 47*L, Calcium Level 9.1, Corrected Calcium 10.1, Magnesium Level 1.4L, Total Bilirubin 0.9, Aspartate Amino Transf (AST/SGOT) 110H, Alanine Aminotransferase (ALT/SGPT) 48, Alkaline Phosphatase 646H, C-Reactive Protein 45.20H, Total Protein 6.9, Albumin 2.7L, Serum Alcohol < 10 08/10/23 17:40: Glucometer 28*L 08/10/23 17:43: Influenza Type A (RT-PCR) Not Detected, Influenza Type B (RT-PCR) Not Detected, SARS-CoV-2 RNA (RT-PCR) Not Detected 08/10/23 18:34: Glucometer 207H 08/10/23 20:15: Urine Color YELLOW, Urine Clarity CLEAR, Urine pH 6.0, Urine Specific [place] <=1.005, Urine Protein NEGATIVE, Urine Glucose (UA) NEGATIVE, Urine Ketones NEGATIVE, Urine Nitrite NEGATIVE, Urine Bilirubin NEGATIVE, Urine Urobilinogen 0.2, Urine Leukocyte Esterase TRACEH, Urine RBC (Auto) 3+H, Urine RBC >100H, Urine WBC 10-25H, Urine Crystals NONE, Urine Bacteria MODERATEH, Urine Casts NONE, Urine Mucus NEGATIVE, Urine Culture Indicated YES 08/10/23 20:45: Lactic Acid Level 4.37*H, Lipase 276H 08/10/23 23:39: Glucometer 112H 08/11/23 00:42: Glucometer 118H 08/11/23 04:50: Glucometer 116H 08/11/23 07:45: Glucometer 100 08/11/23 09:00: White Blood Count 22.3H, Red Blood Count 2.64L, Hemoglobin 9.9L, Hematocrit 29L, Mean Corpuscular Volume 109H, Mean Corpuscular Hemoglobin 38H, Mean Corpuscular Hemoglobin Concent 34, Red Cell Distribution Width 17.0H, Platelet Count 119L, Mean Platelet Volume 12.7H, Immature Granulocyte % (Auto) 4, Neutrophils (%) (Auto) 89H, Lymphocytes (%) (Auto) 4L, Monocytes (%) (Auto) 2, Eosinophils (%) (Auto) 0, Basophils (%) (Auto) 1, Neutrophils # (Auto) 19.8H, Lymphocytes # (Auto) 0.9L, Monocytes # (Auto) 0.5, Eosinophils # (Auto) 0.0, Basophils # (Auto) 0.2H, Immature Granulocyte # (Auto) 0.9H, Neutrophils % (Manual) 93, Lymphocytes % (Manual) 6, Monocytes % (Manual) 1, Nucleated Red Blood Cells 1, Toxic Granulation 1+, Platelet Estimate SLIGHTLY DECREASED, Percent Immature Platelet Fraction 10.5H, Anisocytosis SLIGHT, Macrocytosis SLIGHT, Sodium Level 136, Potassium Level 3.7, Chloride Level 106, Carbon Dioxide Level 10L, Anion Gap 20H, Blood Urea Nitrogen 70H, Creatinine 2.53#H, Estimat Glomerular Filtrati on Rate 20, BUN/Creatinine Ratio 28, Glucose Level 97, Lactic Acid Level 1.67, Calcium Level 8.2L, Corrected Calcium 9.4, Total Bilirubin 0.8, Aspartate Amino Transf (AST/SGOT) 111H, Alanine Aminotransferase (ALT/SGPT) 48, Alkaline Phosphatase 365H, Total Protein 5.6L, Albumin 2.5L 08/11/23 11:34: Glucometer 72 Radiology Liver US: Limited but generally unremarkable-appearing right upper quadrant abdominal ultrasound. Gallbladder is noted to be somewhat distended but otherwise unremarkable. No gallstones or bile duct dilatation. Physical Exam-([facility]) Physical Exam Vital Signs VS - Last 72 Hours, by Label 08/10/23 08/10/23 08/11/23 08/11/23 17:48 23:50 00:42 01:15 Temp 36.7 36.4 Pulse 80 82 82 Resp 16 25 20 B/P (MAP) 107/83 (91) 126/65 142/63 (89) Pulse Ox 97 95 98 O2 Delivery Room Air Room Air Room Air Room Air 08/11/23 08/11/23 08/11/23 08/11/23 04:47 07:39 08:00 11:45 Temp 37.0 36.0 36.4 Pulse 85 90 98 Resp 20 18 18 B/P (MAP) 110/56 (74) 126/60 (82) 137/64 (88) Pulse Ox 96 96 98 98 O2 Delivery Room Air Room Air Room Air Room Air Capillary Refill : Less Than 3 Seconds General Appearance: WD/WN, mild distress Respiratory: chest non-tender, lungs clear, normal breath sounds, no respiratory distress, no accessory muscle use Cardiovascular: normal peripheral pulses, regular rate, rhythm, no edema, no gallop, no murmur Gastrointestinal: normal bowel sounds, tenderness (RUQ, epigastric, and LLQ tenderness to palpation) Extremities: non-tender, no pedal edema, no calf tenderness, normal capillary refill, other (Scarring of left knee due to previous surgery) Neurologic/Psychiatric: no motor/sensory deficits, alert, normal mood/affect, oriented x 3 Skin: normal color, warm/dry Assessment/Plan Assessment/Plan Admission Status: Inpatient Order (span 2 midnights) Reason for Inpatient Admission: [facility], sepsis (1) Sepsis Status: Acute Assessment & Plan: - Leukocytosis of 22.3 with 89% neutrophils - CRP of 45 on 08/10 - Anion gap of 20 (decreased from 27) - Lactic acid increased at 4.37 in ED with repeat being 1.67 - Negative influenza and COVID tests - Source of infection most likely UTI - There was concern for ascending cholangitis but liver US only showed mild dilation of gallbladder. - Pending blood cultures - Continue IV Rocephin - Repeat CBC, CMP in AM Qualifiers: Qualified Codes: A41.9 - Sepsis, unspecified organism; R65.20 - Severe sepsis without septic shock; N17.9 - Acute kidney failure, unspecified (2) Acute kidney injury Status: Acute Assessment & Plan: - Patient had Cr of 3.17 upon arrival to ED with BUN of 83 - Cr decreased to 2.53 on 08/11 and BUN decreased to 70 - Patient baseline Cr is 1-1.4 - Most likely secondary to dehydration from poor oral intake compounded by sepsis - Continue IV fluids - Continue to treat infection - Trend AM CMP (3) Urinary tract infection Status: Acute Assessment & Plan: - Patient had UA showing trace leukocyte esterase, 10-25 WBC, moderate bacteria, and >100 RBC - RBC most likely due to urethral damage because UA was obtained via catheterization - Continue Ceftriaxone x7 days. Possibly more depending on blood cultures Qualifiers: Qualified Codes: N39.0 - Urinary tract infection, site not specified; R31.9 - Hematuria, unspecified (4) RUQ pain Status: Acute Assessment & Plan: - Patient had AST of 110, alk phos of 646, and lipase of 276 upon arrival to ED - Repeat labs showed AST of 111 and alk phos of 365 on 08/11 - We are not sure what is causing these elevated labs. Could be primary sc lerosing cholangitis associated with Crohn disease - Liver US: Limited but generally unremarkable-appearing right upper quadrant abdominal ultrasound. Gallbladder is noted to be somewhat distended but otherwise unremarkable. No gallstones or bile duct dilatation. - Consider repeating lipase - Consider ordering GGT - Consider abdominal CT if abdominal pain persists - Consider MRCP if high suspicion for PSC (5) Hypoglycemia Status: Acute Assessment & Plan: - Patient had glucose level of 47 at ED. Increased with an amp of D50. - Cause of hypoglycemia not known. Most likely secondary to malnutrition from loss of appetite - Continue to monitor (6) Macrocytic anemia Status: Chronic Assessment & Plan: - CBC showed hemoglobin of 11.1 with MCV of 109 - Most likely secondary to folate or vitamin B12 deficiency secondary to malnutrition vs chronic alcohol use vs liver disease vs azathioprine - Consider ordering folate and vitamin B12 levels (7) Crohn disease Status: Chronic Assessment & Plan: - Continue azathioprine 50mg - Following with doctor from [facility] Qualifiers: Qualified Codes: K50.90 - Crohn's disease, unspecified, without complications JENNIFER LOPEZ MD 08/11/23 1553: Home Medications Allergies Coded Allergies: No Known Drug Allergies (Unverified , 09/04/19) Supervisory-Addendum Brief Supervisory Addendum I personally performed or re-performed the history, physical exam and treatment for the E/M. I discussed the case with the Medical Student, and concur with the Medical Student documentation of history, physical exam and treatment plan unless otherwise noted. RIGO PERSAUD Aug 11, 2023 14:26 JENNIFER LOPEZ MD Aug 11, 2023 15:53
[2023-08-11] MEDS ORDERED: ONDANSETRON 4 MG ORAL DISSOLVE TABLET PO PRN (14:45)
[2023-08-11] MEDS: oxyCODONE IMMEDIATE RELEASE 5 MG TABLET PO PRN ×2 (15:11→20:01)
[2023-08-11] MEDS: cefTRIAXone IV/IM 1,000 MG in NS (IVPB) 50 ML 50 ML IV SCH (20:05)
[2023-08-12 03:57] VITALS: BP 133/67
[2023-08-12] MEDS: LACTATED RINGERS 1,000 ML 1,000 ML IV SCH ×4 (04:08→23:25)
[2023-08-12] MEDS ORDERED: PATIENT MAY USE OWN MED,SINGLE MED PO SCH (06:45)
[2023-08-12 07:24] LABS: BASOPHILS # (AUTO) 0.1 10^3/uL (0.0-0.1); BASOPHILS % (AUTO) 1 % (0-10); EOSINOPHILS % (AUTO) 0 % (0-10); HEMATOCRIT 23 % (35-52); HEMOGLOBIN 8.3 g/dL (11.5-16.0); MEAN CORPUSCULAR HGB CONC 36 g/dL (32-36)
[2023-08-12 07:26] LABS: LYMPHOCYTES # (AUTO) 0.7 10^3/uL (1.0-4.0); LYMPHOCYTES % (AUTO) 3 % (12-44); MEAN CORPUSCULAR HEMOGLOBIN 37 pg (25-34); MEAN CORPUSCULAR VOLUME 105 fL (80-99); MEAN PLATELET VOLUME 12.7 fL (9.0-12.2); MONOCYTES # (AUTO) 0.3 10^3/uL (0.0-1.0); MONOCYTES % (AUTO) 2 % (0-12); NEUTROPHILS # (AUTO) 18.8 10^3/uL (1.8-7.8); NEUTROPHILS % (AUTO) 92 % (42-75); WHITE BLOOD COUNT 20.5 10^3/uL (4.3-11.0)
[2023-08-12 07:29] LABS: BILIRUBIN,TOTAL 0.6 MG/DL (0.1-1.0); CALCIUM 7.8 MG/DL (8.5-10.1); CREATININE SERUM 2.01 MG/DL (0.60-1.30); POTASSIUM 3.7 MMOL/L (3.6-5.0); TOTAL PROTEIN 4.5 GM/DL (6.4-8.2)
[2023-08-12 07:34] LABS: PLATELET COUNT 88 10^3/uL (130-400)
[2023-08-12 07:48] VITALS: BP 132/72
--- NOTE | 2023-08-12 07:48 | Progress Note ---
Subjective HPI/CC On Admission Date Seen by Provider: Aug 12, 2023 Time Seen by Provider: 09:50 Subjective/Events-last exam Patient states she is feeling much better today. She denies any RUQ or abdominal pain at rest. Otherwise denies any concerns today. Review of Systems General: No Chills, No Night Sweats, No Fatigue HEENT: No Head Aches Pulmonary: No Cough Cardiovascular: No: Chest Pain Gastrointestinal: No: Nausea, Vomiting, Abdominal Pain, Diarrhea, Constipation Genitourinary: No Dysuria, No Frequency, No Incontinence Neurological: No: Weakness Focused Exam Lactate Level 08/10/23 20:45: Lactic Acid Level 4.37*H 08/11/23 09:00: Lactic Acid Level 1.67 Objective Exam Vital Signs Vital Signs Date Time Temp Pulse Resp B/P (MAP) Pulse Ox O2 Delivery O2 Flow Rate FiO2 08/12/23 11:38 36.4 99 17 135/75 (95) 96 Room Air Capillary Refill : Less Than 3 Seconds General Appearance: No Apparent Distress HEENT: PERRL/EOMI Neck: Full Range of Motion Respiratory: Chest Non Tender, Lungs Clear, Normal Breath Sounds, No Accessory Muscle Use, No Respiratory Distress Cardiovascular: Regular Rate, Rhythm, No Edema, No Murmur Gastrointestinal: Normal Bowel Sounds, Non Tender, Soft Back: No CVA Tenderness Neurologic/Psychiatric: Alert, Oriented x3 Results/Procedures Lab Laboratory Tests 08/12/23 05:30 Patient resulted labs reviewed. Imaging: Reviewed Imaging Films Assessment/Plan Assessment and Plan Assess & Plan/Chief Complaint Keisha Bravo is a 68yo F with PMHx of Crohn's disease who was admitted for sepsis secondary to UTI. Diagnosis/Problems Diagnosis/Problems (1) Sepsis Status: Acute Assessment & Plan: Admitted with leukocytosis, lactic acidosis. Noted to have UA positive for UTI with other sources of infection being ruled out. -WBC downtrending today and patient clinically feeling better -Urine and blood cultures growing E.coli, susceptibilities pending -Will continue ceftriaxone for now give overall improvement Qualifiers: Qualified Codes: A41.9 - Sepsis, unspecified organism; R65.20 - Severe sepsis without septic shock; N17.9 - Acute kidney failure, unspecified (2) Urinary tract infection Status: Acute Assessment & Plan: - Patient had UA showing trace leukocyte esterase, 10-25 WBC, moderate bacteria, and >100 RBC - RBC most likely due to urethral damage because UA was obtained via catheterization - Continue Ceftriaxone x7 days. Possibly more depending on blood cultures Qualifiers: Qualified Codes: N39.0 - Urinary tract infection, site not specified; R31.9 - Hematuria, unspecified (3) Acute kidney injury Status: Acute Assessment & Plan: Admission Cr of 3.17. Continues to downtrend today to 2.01. Baseline appears to be 1-1.4. Likely secondary to dehydration/poor oral intake secondary to sepsis. -Continue IV fluids -Continue to trend with CMP (4) Hypoglycemia Status: Resolved Assessment & Plan: Patient had glucose level of 47 at ED. s/p amp of D50. Likely secondary to poor PO intake from sepsis. - Cause of hypoglycemia not known. Most likely secondary to malnutrition from loss of appetite - Patient continues to note poor appetite today thus will continue Q4h glucose checks for now - Can likely dc glucose checks tomorrow if remains stable Resolution Date/Time: 08/12/23 @ 12:15 (5) RUQ pain Status: Acute Assessment & Plan: Patient noted to have AST of 110, alk phos of 646, and lipase of 276 upon arrival to ED. AST/ALT continue to uptrend while alk phos remains stable. Liver U/S unremarkable. RUQ pain not reproducible today. - Likely extrahepatic in nature due to normal bilirubin - May also be secondary to sepsis - Will continue to monitor with routine labs (6) Hypertension Status: Acute Assessment & Plan: Stable, continue home amlodipine. (7) Macrocytic anemia Status: Chronic Assessment & Plan: Hgb 8.3 today, down from 9.9. No overt signs of bleeding exp ressed. Likely dilution decrease as noting decrease in all 3 cell lines. - Most likely secondary to folate or vitamin B12 deficiency secondary to malnutrition vs chronic alcohol use vs liver disease vs azathioprine - Folate and vitamin B12 levels pending - Continue to monitor with routine lab work (8) Crohn disease Status: Chronic Assessment & Plan: Patient on azathioprine 100mg daily, follows with provider at . -Will hold azathioprine for next couple days to prevent decreased immunity and all time for UTI to resolve. Given that this medication is renally cleared, also holding to prevent toxicity. -Per patient, cannot be off medication for too long due to significant Crohn's symptoms. Qualifiers: Qualified Codes: K50.90 - Crohn's disease, unspecified, without complications NINO TRINIDAD MD, RESIDENT Aug 12, 2023 07:48
[2023-08-12] MEDS: amLODIPine 5 MG TABLET PO SCH (08:41)
[2023-08-12] MEDS: oxyCODONE IMMEDIATE RELEASE 5 MG TABLET PO PRN ×3 (08:41→23:41)
[2023-08-12] MEDS: PANTOPRAZOLE 20 MG TABLET PO SCH (08:41)
[2023-08-12] MEDS ORDERED: OMEPRAZOLE 20 MG CAPSULE (NON-FORMULARY) PO SCH (09:00)
[2023-08-12 11:38] VITALS: BP 135/75
[2023-08-12] MEDS: ACETAMINOPHEN 325 MG TABLET PO PRN (15:18)
[2023-08-12 16:13] VITALS: BP 138/72
[2023-08-12 19:27] VITALS: BP 161/67
[2023-08-12] MEDS: cefTRIAXone IV/IM 1,000 MG in NS (IVPB) 50 ML 50 ML IV SCH (20:22)
[2023-08-12 23:22] VITALS: BP 146/80
[2023-08-13] VITALS (8 sets, daily range): BP systolic 133–177; BP diastolic 63–80
[2023-08-13] MEDS ORDERED: FUROSEMIDE INJECTION 40 MG/4 ML VIAL IVP ONE (04:30)
--- NOTE | 2023-08-13 06:37 | Progress Note ---
Subjective HPI/CC On Admission Date Seen by Provider: Aug 13, 2023 Time Seen by Provider: 07:00 UTI Subjective/Events-last exam Patient states that she is continuing to feel well today. Her only notable symptom is significant back pain. She had an episode overnight where she was tachycardic, became a little bit short of breath. Nursing staff noted that patient appeared a little bit fluid overloaded and thus her fluids were discontinued and patient was given a dose of Lasix. She continues to be tachycardic this morning however is denying any chest pain, shortness of breath or palpitations. Review of Systems General: No Chills, No Fatigue HEENT: No Head Aches Pulmonary: No Dyspnea, No Cough Cardiovascular: No: Chest Pain, Palpitations, Edema Gastrointestinal: No: Nausea, Vomiting, Abdominal Pain, Diarrhea, Constipation Genitourinary: No Dysuria Musculoskeletal: back pain Neurological: No: Weakness Focused Exam Lactate Level 08/10/23 20:45: Lactic Acid Level 4.37*H 08/11/23 09:00: Lactic Acid Level 1.67 Objective Exam Vital Signs Vital Signs Date Time Temp Pulse Resp B/P (MAP) Pulse Ox O2 Delivery O2 Flow Rate FiO2 08/13/23 08:00 36.5 55 17 156/80 (105) 92 Room Air Capillary Refill : Less Than 3 Seconds General Appearance: No Apparent Distress HEENT: PERRL/EOMI Neck: Full Range of Motion Respiratory: Chest Non Tender, Lungs Clear, Normal Breath Sounds, No Accessory Muscle Use, No Respiratory Distress Cardiovascular: Regular Rate, Rhythm, No Edema, No Murmur Gastrointestinal: Normal Bowel Sounds, Soft, Tenderness (Left lower quadrant) Back: CVA Tenderness (L), Other (No midline spinal tenderness) Neurologic/Psychiatric: Alert, Oriented x3 Skin: Normal Color, Warm/Dry Results/Procedures Lab Laboratory Tests 08/13/23 08:07 Patient resulted labs reviewed. Imaging: Reviewed Imaging Films Assessment/Plan Assessment and Plan Assess & Plan/Chief Complaint Keisha Bravo is a 68yo F with PMHx of Crohn's disease who was admitted for sepsis secondary to UTI. Diagnosis/Problems Diagnosis/Problems (1) Sepsis Status: Acute Assessment & Plan: Admitted with leukocytosis, lactic acidosis. Noted to have UA positive for UTI with other sources of infection being ruled out. WBC continues to mildly downtrend today however did downtrend appears to be quite slow. Patient also noted to be tachycardic today, EKG showing sinus tachycardia. There is concerned that patient may have an abscess or other source of infection that we are missing. Although patient continues to feel better clinically speaking. In addition, in the setting of bacteremia and patient's mention of significant back pain, there was concern for osteomyelitis or spinal abscess however there was no spinal tenderness noted. Patient does have left lower quadrant tenderness which does not appear to be in the area of the kidneys and thus will look at imaging to further assess this. -Urine and blood cultures growing E.coli, susceptibilities pending -Will continue ceftriaxone for now -We will obtain CT chest, abdomen and pelvis to rule out other sources of infection given that no prior CT scans were done Qualifiers: Qualified Codes: A41.9 - Sepsis, unspecified organism; R65.20 - Severe sepsis without septic shock; N17.9 - Acute kidney failure, unspecified (2) Urinary tract infection Status: Acute Assessment & Plan: - Patient had UA showing trace leukocyte esterase, 10-25 WBC, moderate bacteria, and >100 RBC - RBC most likely due to urethral damage because UA was obtained via catheterization - Continue Ceftriaxone daily Qualifiers: Qualified Codes: N39.0 - Urinary tract infection, site not specified; R31.9 - Hematuria, unspecified (3) Acute kidney injury Status: Acute Assessment & Plan: Admission Cr of 3.17. Continues to downtrend today to 1.72. Baseline appears to be 1-1.4. Likely secondary to dehydration/poor oral intake secondary to sepsis. -Discontinued IV fluids due to note of fluid overload overnight Continue to encourage oral fluid hydration -Continue to trend with CMP (4) RUQ pain Status: Acute Assessment & Plan: Patient noted to have AST of 110, alk phos of 646, and lipase of 276 upon arrival to ED. Liver U/S unremarkable. RUQ pain continues to not be reproducible today. AST/ALT and alk phos relatively stable today. - Likely extrahepatic in nature due to normal bilirubin - May also be secondary to sepsis -Will further assess with CT abdomen today (5) Hypertension Status: Acute Assessment & Plan: Stable, continue home amlodipine. (6) Macrocytic anemia Status: Chronic Assessment & Plan: Hemoglobin stable. - Most likely secondary to folate or vitamin B12 deficiency secondary to malnutrition vs chronic alcohol use vs liver disease vs azathioprine - Folate and vitamin B12 levels pending - Continue to monitor with routine lab work (7) Crohn disease Status: Chronic Assessment & Plan: Patient on azathioprine 100mg daily, follows with provider at . -Will hold azathioprine for next couple days to prevent decreased immunity and all time for UTI to resolve. Given that this medication is renally cleared, also holding to prevent toxicity. -Per patient, cannot be off medication for too long due to significant Crohn's symptoms. Qualifiers: Qualified Codes: K50.90 - Crohn's disease, unspecified, without complications NINO TRINIDAD MD, RESIDENT Aug 13, 2023 06:37
[2023-08-13 08:14] LABS: EOSINOPHILS % (AUTO) 0 % (0-10); HEMOGLOBIN 9.2 g/dL (11.5-16.0)
[2023-08-13 08:16] LABS: BASOPHILS # (AUTO) 0.1 10^3/uL (0.0-0.1); BASOPHILS % (AUTO) 0 % (0-10); HEMATOCRIT 26 % (35-52); LYMPHOCYTES # (AUTO) 0.8 10^3/uL (1.0-4.0); LYMPHOCYTES % (AUTO) 4 % (12-44); MEAN CORPUSCULAR HEMOGLOBIN 37 pg (25-34); MEAN CORPUSCULAR HGB CONC 35 g/dL (32-36); MEAN CORPUSCULAR VOLUME 105 fL (80-99); MEAN PLATELET VOLUME 12.7 fL (9.0-12.2); MONOCYTES # (AUTO) 0.6 10^3/uL (0.0-1.0); MONOCYTES % (AUTO) 3 % (0-12); NEUTROPHILS # (AUTO) 18.1 10^3/uL (1.8-7.8); NEUTROPHILS % (AUTO) 90 % (42-75); WHITE BLOOD COUNT 20.2 10^3/uL (4.3-11.0)
[2023-08-13 08:19] LABS: PLATELET COUNT 98 10^3/uL (130-400)
[2023-08-13 08:28] LABS: ALBUMIN 2.6 GM/DL (3.2-4.5); POTASSIUM 3.7 MMOL/L (3.6-5.0)
[2023-08-13 08:29] LABS: CALCIUM 8.5 MG/DL (8.5-10.1)
[2023-08-13 08:30] LABS: TOTAL PROTEIN 5.8 GM/DL (6.4-8.2)
[2023-08-13 08:32] LABS: BILIRUBIN,TOTAL 0.7 MG/DL (0.1-1.0)
[2023-08-13 08:34] LABS: CREATININE SERUM 1.72 MG/DL (0.60-1.30)
[2023-08-13] MEDS: PANTOPRAZOLE 20 MG TABLET PO SCH (08:39)
[2023-08-13] MEDS: amLODIPine 5 MG TABLET PO SCH (08:39)
[2023-08-13] MEDS: LIDOCAINE 4% PATCH TOP SCH (09:26)
[2023-08-13] MEDS: oxyCODONE IMMEDIATE RELEASE 5 MG TABLET PO PRN ×3 (09:30→23:13)
[2023-08-13] MEDS: ACETAMINOPHEN 325 MG TABLET PO PRN (09:30)
--- NOTE | 2023-08-13 11:52 | Diagnostic Imaging Report ---
EXAMINATION: CT chest, abdomen, and pelvis without intravenous contrast. TECHNIQUE: Multiple contiguous axial images were obtained through the chest, abdomen and pelvis without intravenous contrast. All CT scans use one or more of the following dose optimizing techniques: automated exposure control, MA and/or KvP adjustment based on patient size and exam type or iterative reconstruction. HISTORY: Elevated white blood cell count, decreased breath sounds, and abdominal pain. COMPARISON: None available. FINDINGS: Thyroid: The thyroid is normal. Mediastinum: Heart size is normal without significant pericardial effusion. Calcifications of the aorta and coronary vessels. Thoracic aorta is normal in caliber. No suspicious lymphadenopathy. Lungs and airways: There are small bilateral pleural effusions. There is mild bibasilar dependent atelectasis. Mild background emphysematous changes in the lungs. No pneumothorax. There is a left lower lobe pulmonary nodule measuring up to 0.2 cm. The airways are normal. Solid organs: The liver is normal. The gallbladder is normal. There is no biliary ductal dilation. Pancreas is normal. Spleen is normal. Adrenal glands are normal. The kidneys are normal without hydronephrosis. Bowel: There is a small hiatal hernia present. No bowel obstruction. The left hemicolon is decompressed which gives an appearance of wall thickening. The appendix is normal. Peritoneum: There is trace free fluid within the abdomen and pelvis. No loculated fluid collection or free air. No suspicious lymphadenopathy. Vasculature: Calcification of the aorta without aneurysm. Musculoskeletal: Degenerative changes of the spine without suspicious osseous lesion or compression fracture. Pelvis: The uterus and adnexa are normal. The urinary bladder is normal. IMPRESSION: 1. No acute abnormality in the chest, abdomen, or pelvis. 2. Small bilateral pleural effusions with mild bibasilar atelectasis. 3. Minimal free fluid within the abdomen and pelvis which is nonspecific. 4. Mild wall thickening of the left hemicolon which may be secondary to a decompressed state but an infectious or inflammatory colitis could have a similar appearance given the provided history of left lower quadrant tenderness. Dictated by: Dictated on workstation # [id number]
[2023-08-13] MEDS: cefTRIAXone IV/IM 1,000 MG in NS (IVPB) 50 ML 50 ML IV SCH (20:24)
[2023-08-13] MEDS ORDERED: PATCH REMOVAL TP SCH (21:00)
[2023-08-14 03:03] VITALS: BP 146/76
[2023-08-14] MEDS: oxyCODONE IMMEDIATE RELEASE 5 MG TABLET PO PRN ×2 (06:10→11:05)
[2023-08-14] MEDS: ACETAMINOPHEN 325 MG TABLET PO PRN (06:11)
[2023-08-14 07:12] VITALS: BP 136/69
[2023-08-14 08:32] LABS: MEAN CORPUSCULAR HEMOGLOBIN 37 pg (25-34)
[2023-08-14 08:34] LABS: BASOPHILS % (AUTO) 0 % (0-10); EOSINOPHILS % (AUTO) 0 % (0-10); HEMATOCRIT 23 % (35-52); HEMOGLOBIN 8.2 g/dL (11.5-16.0); LYMPHOCYTES # (AUTO) 0.7 10^3/uL (1.0-4.0); LYMPHOCYTES % (AUTO) 5 % (12-44); MEAN CORPUSCULAR HGB CONC 36 g/dL (32-36); MEAN CORPUSCULAR VOLUME 103 fL (80-99); MEAN PLATELET VOLUME 13.1 fL (9.0-12.2); MONOCYTES # (AUTO) 0.7 10^3/uL (0.0-1.0); MONOCYTES % (AUTO) 4 % (0-12); NEUTROPHILS # (AUTO) 13.4 10^3/uL (1.8-7.8); NEUTROPHILS % (AUTO) 89 % (42-75); PLATELET COUNT 103 10^3/uL (130-400); WHITE BLOOD COUNT 15.1 10^3/uL (4.3-11.0)
[2023-08-14] MEDS: amLODIPine 5 MG TABLET PO SCH (08:44)
[2023-08-14] MEDS: LIDOCAINE 4% PATCH TOP SCH (08:44)
[2023-08-14] MEDS: PANTOPRAZOLE 20 MG TABLET PO SCH (08:44)
[2023-08-14 08:46] LABS: ALBUMIN 2.5 GM/DL (3.2-4.5); BILIRUBIN,TOTAL 0.6 MG/DL (0.1-1.0); CALCIUM 8.1 MG/DL (8.5-10.1); CREATININE SERUM 1.63 MG/DL (0.60-1.30); POTASSIUM 3.6 MMOL/L (3.6-5.0); TOTAL PROTEIN 5.5 GM/DL (6.4-8.2)
[2023-08-14] MEDS ORDERED: ENOXAPARIN 30 MG/0.3 ML SYRINGE SC SCH (09:00)
[2023-08-14 09:09] VITALS: BP 137/72
[2023-08-14] MEDS ORDERED: DICLOFENAC 1% GEL 100 GM TUBE TOP SCH (10:30)
[2023-08-14] MEDS ORDERED: CYCLOBENZAPRINE 10 MG TABLET PO PRN (10:30)
[2023-08-14] MEDS ORDERED: OXC5T PO (10:48)
[2023-08-14] MEDS ORDERED: LIDO1ADH78 TP (10:48)
[2023-08-14] MEDS ORDERED: CEPH500T PO (10:48)
--- NOTE | 2023-08-14 10:49 | Discharge Summary ---
Discharge Summary Hospital Course Problems/Dx: (1) Sepsis Status: Acute Qualifiers: Qualified Codes: A41.9 - Sepsis, unspecified organism; R65.20 - Severe sepsis without septic shock; N17.9 - Acute kidney failure, unspecified (2) Urinary tract infection Status: Acute Qualifiers: Qualified Codes: N39.0 - Urinary tract infection, site not specified; R31.9 - Hematuria, unspecified (3) Acute kidney injury Status: Acute (4) RUQ pain Status: Acute (5) Hypertension Status: Acute (6) Macrocytic anemia Status: Chronic (7) Crohn disease Status: Chronic Qualifiers: Qualified Codes: K50.90 - Crohn's disease, unspecified, without complications Hospital Course Date of Admission: Aug 11, 2023 at 00:41 Admission Diagnosis : [facility] Date of Discharge: 08/14/23 Discharge Diagnosis: [ ] Hospital Course: [ ]08/14/2023: Keisha, a 68F, presented to the [place] ED with generalized back pain, weakness, fatigue, loss of appetite, and urinary changes. At the ED, it was discovered that Keisha was hypoglycemic and had an elevated Cr at 3.2. Due to this, she was given an amp of D50. CBC found that she had leukocytosis and anemia, along with signs of WAYNE. Furthermore, her CRP was elevated at 45. Her UA indicated that she had a UTI, later cultured to be E. coli. Her lactic acid at this time was 4.37. Due to this, it was determined that Keisha had sepsis. Rocephin was started once signs of sepsis were identified, which has continued to improve her status. Blood culture came back and showed that she had E. Coli in her bloodstream. It was also found at this time that her CMP showed elevated AST and ALT, likely due to the sepsis. At time of discharge, her AST and ALT have continued to improve. Of note, she also has a PMH of Crohns, which is managed with Azathioprine. Due the nature of her infection, the azathioprine has been held to allow immune response to clear the disseminated UTI. Keisha's main concern is that she has L-flank pain. It was noted that this pain is likely due to the infection and WAYNE. This should continue to improve with ABX and time. At time of discharge, all concerns of sepsis are mitigated. Patient appears well and is able to follow conversation. She has had no fever, hypotension, hypoglycemia, or other signs of sepsis. Notably, her CBC has shown her WBC to continue to lower, indicating proper tx of infection. Her BUN and Cr have also continued to improve while in the hospital. Keisha notes that she has a lot of support at home, with her being able to care for her. Additionally, due to Keisha's concerns about her "back pain" (L-flank pain), PT was consulted and they found that she was able to ambulate and they have no concerns about her discharge. Given that her signs of sepsis have dissipated, she no longer has urinary concerns, and there is a tx plan for her back pain, she is able to discharge home. To continue to treat her UTI and ensure it is eliminated, Keisha will go home on Cephalexin 500 mg TID. For her back pain, a 4% Lidocaine path will be worn daily until pain dissipates. For kidney concerns, Keisha has been encouraged to drink a lot of water to support proper filtration. Proper nutrition and clearing of the sepsis should eliminate future hypoglycemic episodes. For her Crohns, she may restart taking her Azathioprine at time of discharge. She will also be given oral pain medications (oxycodone 5mg) to bridge this flank pain. Keisha is encouraged to return to the ED or contact her PCP if symptoms change. YULIET WATERMAN Labs and Pending Lab Test: Laboratory Tests 08/14/23 08:23: White Blood Count 15.1H, Red Blood Count 2.21L, Hemoglobin 8.2L, Hematocrit 23L, Mean Corpuscular Volume 103H, Mean Corpuscular Hemoglobin 37H, Mean Corpuscular Hemoglobin Concent 36, Red Cell Distribution Width 17.2H, Platelet Count 103L, Mean Platelet Volume 13.1H, Immature Granulocyte % (Auto) 2, Neutrophils (%) (Auto) 89H, Lymphocytes (%) (Auto) 5L, Monocytes (%) (Auto) 4, Eosinophils (%) (Auto) 0, Basophils (%) (Auto) 0, Neutrophils # (Auto) 13.4H, Lymphocytes # (Auto) 0.7L, Monocytes # (Auto) 0.7, Eosinophils # (Auto) 0.0, Basophils # (Auto) 0.0, Immature Granulocyte # (Auto) 0.3H, Percent Immature Platelet Fraction 12.4H, Sodium Level 139, Potassium Level 3.6, Chloride Level 105, Carbon Dioxide Level 17L, Anion Gap 17H, Blood Urea Nitrogen 42H, Creatinine 1.63H, Estimat Glomerular Filtration Rate 34, BUN/Creatinine Ratio 26, Glucose Level 137H, Calcium Level 8.1L, Corrected Calcium 9.3, Total Bilirubin 0.6, Aspartate Amino Transf (AST/SGOT) 48H, Alanine Aminotransferase (ALT/SGPT) 57H, Alkaline Phosphatase 269H, Total Protein 5.5L, Albumin 2.5L Microbiology 08/10/23 Blood Culture - Preliminary, Resulted Escherichia coli 08/10/23 Urine Culture - Final, Complete Escherichia coli Home Meds Active Cephalexin 500 Mg Tablet 500 Mg PO TID Lidocaine 4 % Adh..patch 1 Each TP DAILY Reported Ibuprofen 200 Mg Tablet 400 Mg PO Q8H PRN TAKES 2 (200MG) TABS Losartan Potassium 100 Mg Tablet 100 Mg PO DAILY Omeprazole 20 Mg Capsule.dr 20 Mg PO DAILY Ondansetron HCl 8 Mg Tablet 8 Mg PO Q8H PRN Imuran (Azathioprine) 50 Mg Tablet 100 Mg PO DAILY TAKES 2 (50MG) TABS Metoprolol Tartrate 25 Mg Tablet 50 Mg PO DAILY TAKES 2 (25MG) TABS Amlodipine Besylate 5 Mg Tablet 5 Mg PO DAILY TAKES 2.5MG +5NG TOGETHER TO EQUAL 7.5MG Amlodipine Besylate 2.5 Mg Tablet 2.5 Mg PO DAILY TAKES 2.5MG +5NG TOGETHER TO EQUAL 7.5MG Assessment/Pt Instructions PCP 1 month Discharge Planning: <30 minutes discharge planning Discharge Instructions Discharge Diet: No Restrictions Activity as Tolerated: Yes Discharge Physical Examination Vital Signs Vital Signs Date Time Temp Pulse Resp B/P (MAP) Pulse Ox O2 Delivery O2 Flow Rate FiO2 08/14/23 09:28 98 Room Air 08/14/23 09:09 116 18 137/72 (93) 08/14/23 07:12 36.3 General Appearance: No Apparent Distress, WD/WN, Chronically ill Respiratory: Lungs Clear, Normal Breath Sounds Cardiovascular: Regular Rate, Rhythm Neurologic/Psychiatric: Alert, Oriented x3 Allergies: Coded Allergies: No Known Drug Allergies (Unverified , 09/04/19) Discharge Summary Date of Admission Aug 11, 2023 at 00:41 Date of Discharge Discharge Date: Aug 14, 2023 Discharge Diagnosis (1) Sepsis Status: Acute Assessment & Plan: Admitted with leukocytosis, lactic acidosis. Noted to have UA positive for UTI with other sources of infection being ruled out. WBC continues to mildly downtrend today however did downtrend appears to be quite slow. Patient also noted to be tachycardic today, EKG showing sinus tachycardia. There is concerned that patient may have an abscess or other source of infection that we are missing. Although patient continues to feel better clinically speaking. In addition, in the setting of bacteremia and patient's mention of significant back pain, there was concern for osteomyelitis or spinal abscess however there was no spinal tenderness noted. Patient does have left lower quadrant tenderness which does not appear to be in the area of the kidneys and thus will look at imaging to further assess this. -Urine and blood cultures growing E.coli, susceptibilities pending -Will continue ceftriaxone for now -We will obtain CT chest, abdomen and pelvis to rule out other sources of infec tion given that no prior CT scans were done Qualifiers: Qualified Codes: A41.9 - Sepsis, unspecified organism; R65.20 - Severe sepsis without septic shock; N17.9 - Acute kidney failure, unspecified (2) Urinary tract infection Status: Acute Assessment & Plan: - Patient had UA showing trace leukocyte esterase, 10-25 WBC, moderate bacteria, and >100 RBC - RBC most likely due to urethral damage because UA was obtained via catheteriz ation - Continue Ceftriaxone daily Qualifiers: Qualified Codes: N39.0 - Urinary tract infection, site not specified; R31.9 - Hematuria, unspecified (3) Acute kidney injury Status: Acute Assessment & Plan: Admission Cr of 3.17. Continues to downtrend today to 1.72. Baseline appears to be 1-1.4. Likely secondary to dehydration/poor oral intake secondary to sepsis. -Discontinued IV fluids due to note of fluid overload overnight Continue to encourage oral fluid hydration -Continue to trend with CMP (4) RUQ pain Status: Acute Assessment & Plan: Patient noted to have AST of 110, alk phos of 646, and lipase of 276 upon arrival to ED. Liver U/S unremarkable. RUQ pain continues to not be reproducible today. AST/ALT and alk phos relatively stable today. - Likely extrahepatic in nature due to normal bilirubin - May also be secondary to sepsis -Will further assess with CT abdomen today (5) Hypertension Status: Acute Assessment & Plan: Stable, continue home amlodipine. (6) Macrocytic anemia Status: Chronic Assessment & Plan: Hemoglobin stable. - Most likely secondary to folate or vitamin B12 deficiency secondary to malnu trition vs chronic alcohol use vs liver disease vs azathioprine - Folate and vitamin B12 levels pending - Continue to monitor with routine lab work (7) Crohn disease Status: Chronic Assessment & Plan: Patient on azathioprine 100mg daily, follows with provider at . -Will hold azathioprine for next couple days to prevent decreased immunity and all time for UTI to resolve. Given that this medication is renally cleared, also holding to prevent toxicity. -Per patient, cannot be off medication for too long due to significant Crohn's symptoms. Qualifiers: Qualified Codes: K50.90 - Crohn's disease, unspecified, without complications VESNA FERRER DO Aug 14, 2023 10:49
--- NOTE | 2023-08-14 11:12 | Progress Note ---
YULIET WATERMAN 08/14/23 1112: Progress Note 08/14/2023: Keisha, a 68F, presented to the [facility] ED with generalized back pain, weakness, fatigue, loss of appetite, and urinary changes. At the ED, it was discovered that Keisha was hypoglycemic and had an elevated Cr at 3.2. Due to this, she was given an amp of D50. CBC found that she had leukocytosis and anemia, along with signs of WAYNE. Furthermore, her CRP was elevated at 45. Her UA indicated that she had a UTI, later cultured to be E. coli. Her lactic acid at this time was 4.37. Due to this, it was determined that Keisha had sepsis. Rocephin was started once signs of sepsis were identified, which has continued to improve her status. Blood culture came back and showed that she had E. Coli in her bloodstream. It was also found at this time that her CMP showed elevated AST and ALT, likely due to the sepsis. At time of discharge, her AST and ALT have continued to improve. Of note, she also has a PMH of Crohns, which is m anaged with Azathioprine. Due the nature of her infection, the azathioprine has been held to allow immune response to clear the disseminated UTI. Keisha's main concern is that she has L-flank pain. It was noted that this pain is likely due to the infection and WAYNE. This should continue to improve with ABX and time. At time of discharge, all concerns of sepsis are mitigated. Patient appears well and is able to follow conversation. She has had no fever, hypotension, hypoglycemia, or other signs of sepsis. Notably, her CBC has shown her WBC to continue to lower, indicating proper tx of infection. Her BUN and Cr have also continued to improve while in the hospital. Keisha notes that she has a lot of support at home, with her being able to care for her. Additionally, due to Keisha's concerns about her "back pain" (L-flank pain), PT was consulted and they found that she was able to ambulate and they have no concerns about her discharge. Given that her signs of sepsis have dissipated, she no longer has urinary concerns, and there is a tx plan for her back pain, she is able to discharge home. To continue to treat her UTI and ensure it is eliminated, Keisha will go home on Cephalexin 500 mg TID. For her back pain, a 4% Lidocaine path will be worn daily until pain dissipates. For kidney concerns, Keisha has been encouraged to drink a lot of water to support proper filtration. Proper nutrition and clearing of the sepsis should eliminate future hypoglycemic episodes. For her Crohns, she may restart taking her Azathioprine at time of discharge. She will also be given oral pain medications (oxycodone 5mg) to bridge this flank pain. Keisha is encouraged to return to the ED or contact her PCP if symptoms change. RAINE FERRER DO 08/14/231944: Supervisory-Addendum Brief Verification & Attestation Participated in pt care: history, MDM, physical Personally performed: exam, history, MDM, supervision of care Care discussed with: Medical Student Procedures: n/a Results interpretation: Verified all documentation Verification and Attestation of Medical Student E/M Service A medical student performed and documented this service in my presence. I reviewed and verified all information documented by the medical student and made modifications to such information, when appropriate. I personally performed the physical exam and medical decision making. Raine Ferrer, Aug 14, 2023,19:45 YULIET WATERMAN Aug 14, 2023 11:12 RAINE FERRER DO Aug 14, 2023 19:45
[2023-08-14 11:20] VITALS: BP 119/67
--- NOTE | 2023-08-14 11:20 | Physical Therapy Evaluation ---
PT Evaluation-General Medical Diagnosis Admission Date Aug 11, 2023 at 00:41 Medical Diagnosis: renal failure Onset Date: Aug 11, 2023 Therapy Diagnosis Therapy Diagnosis: debility Precautions Precautions/Isolations: Standard Precautions Referral Physician: Evangelista Reason for Referral: Evaluation/Treatment Medical History Pertinent Medical History: HTN Additional Medical History Crohn's Current History ER secondary to fatigue/weakness Reviewed History: Yes Social History Home: Single Level Current Living Status: Spouse Entry Into Home: Stairs Without Railing PT Steps Into Home: 1 (small per patient) Prior Prior Level of Function SCALE: Activities may be completed with or without assistive devices. 2-Lamtopjlpb-senptbx completes the activity by him/herself with no assistance from a helper. 5-Set-up or Clean-up Assistance-helper sets up or cleans up; patient completes activity. Lehr assists only prior to or following the activity. 4-Supervision or Touching Assistance-helper provides verbal cues and/or touching/steadying and/or contact guard assistance as patient completes activity. Assistance may be provided throughout the activity or intermittently. 3-Partial/Moderate Assistance-helper does LESS THAN HALF the effort. Lehr lifts, holds or supports trunk or limbs, but provides less than half the effort. 2-Substantial/Maximal Assistance-helper does MORE THAN HALF the effort. Lehr lifts or holds trunk or limbs and provides more than half the effort. 9-[id number]-qjgxya does ALL the effort. Patient does none of the effort to complete the activity. Or, the assistance of 2 or more helpers is required for the patient to complete the activity. If activity was not attempted, code reason: 7-Patient Refused. 9-Not Applicable-not attempted and the patient did not perform the activity before the current illness, exacerbation or injury. 10-Not Attempted due to Environmental Limitations-(lack of equipment, weather restraints, etc.). 88-Not Attempted due to Medical Conditions or Safety Concerns. Bed Mobility: 6 Transfers (B,C,W/C): 6 Gait: 6 Stairs: 6 Indoor Mobility (Ambulation): Independent Stairs: Independent Prior Devices Use: None PT Evaluation-Current Subjective Patient reluctantly agrees to PT. Pain Numeric Pain Scale: 5-Moderate Pain Location: Soft Tissue Location Body Site: Back Pain Description: Acute ROM/Strength ROM Lower Extremities bilateral LE WFL Strength Lower Extremities NT (patient would not allow testing due to left gluteal pain) Integumentary/Posture Bowel Incontinence: No Bladder Incontinence: No Posture WFL Neuromuscular (Tone, Coordination, Reflexes) grossly intact Sensory Vision: Wears Glasses Hearing: Functional Transfers Lying to Sitting/Side of Bed(Q: 6 Sit to Stand (QC): 6 Chair/Xgx-ex-Nwdtt Xfer(QC): 6 Gait Mode of Locomotion: Walk Anticipated Mode of Locomotion: Walk Walk 10 feet (QC): 6 Walk 50 ft with 2 Turns(QC): 6 Walk 150 ft (QC): 6 Distance: 275' Gait Assistive Device: FWW Comments/Gait Description very slow, steady gait sequence Balance Sitting Static: Normal Sitting Dynamic: Normal Standing Static: Normal Standing Dynamic: Normal Treatment PT attempted to perform exercises/stretching with patient, however, patient adamantly declined attempt. PT asked patient to cross left LE over right in seated position and patient refuses. Assessment/Needs Patient is currently at independent LOF with all gross motor skills. Patient declined left gluteal stretching at this time. Physician notified. No skilled PT indicated. Rehab Potential: Fair PT Plan Treatment/Plan Treatment Plan: Discontinue PT Treatment Duration: Aug 14, 2023 Frequency: 1 time per week Estimated Hrs Per Day: .25 hour per day Time Time In: 1010 Time Out: 1022 DATE: Aug 14, 2023 Total Billed Treatment Time: 12 Total Billed Treatment 1 visit Mod 12 min MILTON VALADEZ PT Aug 14, 2023 11:20
[2023-08-14] MEDS ORDERED: DICLOFENAC 1% GEL 50 GM TUBE TOP SCH (13:00)
[2023-08-14 13:54] VITALS: BP 119/67
== END 2023-08-14 13:56 | disposition home or self-care (01) | DRG 872 ==
LOC: EDUNIT# 17:29 → ER FS 17:31 → 4TH 08-11 00:41
PROVIDERS: ADMIT Family Medicine; ATTEND Internal Medicine
DX: A41.9 Sepsis, unspecified organism (principal); N17.9 Acute kidney failure, unspecified; N39.0 Urinary tract infection, site not specified; K50.90 Crohn's disease, unspecified, without complications; E87.20 Acidosis, unspecified; Z20.822 Contact with and (suspected) exposure to COVID-19; E16.2 Hypoglycemia, unspecified; E83.42 Hypomagnesemia; Z87.891 Personal history of nicotine dependence; N18.9 Chronic kidney disease, unspecified; I12.9 Hypertensive chronic kidney disease with stage 1 through stage 4 chronic kidney disease, or unspecified chronic kidney disease; E86.0 Dehydration; R10.11 Right upper quadrant pain; D53.9 Nutritional anemia, unspecified; B96.20 Unspecified Escherichia coli [E. coli] as the cause of diseases classified elsewhere
CPT/HCPCS: 36415; 51701; 71250; 74176; 76705; 80053; 80320; 81000; 82607; 82746; 82947; 82977; 83605; 83690; 83735; 85007; 85025; 85027; 85610; 85730; 86141; 87040; 87077; 87088; 87186; 87636; 93005